=== PATIENT | female | born 1995 | race American Indian/Alaskan Native ===

== ENCOUNTER 2016-11-13 23:30 | Emergency (ER) | payer MEDICAID, OTHER ==
[2016-11-13 23:55] VITALS: BP 111/72; PULSE 97; RESP 20; TEMP 97.6; O2SAT 100
[2016-11-14] MEDS ORDERED: Albuterol-Ipratrop 3 mg / 0.5 (3 ml) UD ONE (00:03)
--- NOTE | 2016-11-14 00:06 | C.PDOC ---
History Of Present Illness 21 y/o female presents to ED with c/o cough, chest congestion, and shortness of breath for 2 days. Patient reports mild pain to the mid-chest on cough. Patient denies fever, chills, recent travel, sick contacts, or other associated symptoms. Time Seen by Provider: 11/13/16 23:57 Chief Complaint (Nursing): Shortness Of Breath History Per: Patient History/Exam Limitations: no limitations Onset/Duration Of Symptoms: Days Current Symptoms Are (Timing): Still Present Associated Symptoms: denies: Fever, Chest Pain, Bloody Cough, Dizziness, Anxiety Recent travel outside of the [place]: No Past Medical History Reviewed: Historical Data, Nursing Documentation, Vital Signs Vital Signs: Last Vital Signs Temp 97.6 F 11/13/16 23:48 Pulse 97 H 11/13/16 23:48 Resp 20 11/13/16 23:48 BP 111/72 11/13/16 23:48 Pulse Ox 100 11/14/16 00:50 Family History: States: Unknown Family Hx - Social History Hx Alcohol Use: Yes Hx Substance Use: No - Immunization History Hx Tetanus Toxoid Vaccination: No Hx Influenza Vaccination: No Hx Pneumococcal Vaccination: No Review Of Systems Constitutional: Negative for: Fever, Chills Cardiovascular: Positive for: Chest Pain (mid ) Respiratory: Positive for: Cough, Shortness of Breath Gastrointestinal: Negative for: Nausea, Vomiting, Abdominal Pain Skin: Negative for: Rash Neurological: Negative for: Headache, Dizziness Physical Exam - Physical Exam Appears: Non-toxic, No Acute Distress Skin: Normal Color, Warm, Dry, No Rash Head: Atraumatic, Normacephalic Eye(s): bilateral: Normal Inspection Oral Mucosa: Moist Throat: Normal, No Erythema, No Exudate Neck: Supple Chest: Symmetrical, No Tenderness Cardiovascular: Rhythm Regular Respiratory: Normal Breath Sounds, No Rales, Rhonchi, No Stridor, No Wheezing Back: Normal Inspection Extremity: Normal ROM, Capillary Refill (< 2 sec. ) Neurological/Psych: Oriented x3, Normal Speech, Normal Cognition Gait: Steady ED Course And Treatment O2 Sat by Pulse Oximetry: 100 (RA) Pulse Ox Interpretation: Normal Progress Note: Pt feels better after meds, CXR reviewed and normal. Pt is d/c with RX and will follow up with PMD Reassessment Condition: Improved Disposition Counseled Patient/Family Regarding: Diagnosis, Need For Followup - Disposition Disposition: HOME/ ROUTINE Disposition Time: 00:06 Condition: STABLE Additional Instructions: Please follow up with PMD Increase PO fluids Take all meds as prescribed Return to ER if worse Prescriptions: Ibuprofen [Motrin] 600 mg PO Q6H #30 tab Mometasone Furoate [Nasonex] 2 spray NS DAILY #1 bottle Benzonatate [Tessalon Perles] 100 mg PO TID #20 sgl Cetirizine HCl [Zyrtec] 10 mg PO DAILY #20 capsule Instructions: Upper Respiratory Infection (ED) Forms: Work Excuse - Clinical Impression Clinical Impression: Upper respiratory infection - PA / KILN TESTER / Resident Statement MD/DO has reviewed & agrees with the documentation as recorded. - Scribe Statement The provider has reviewed the documentation as recorded by the Sukumar Escobar Provider Scribe Attestation: All medical record entries made by the Spenceribsyeda were at my direction and personally dictated by me. I have reviewed the chart and agree that the record accurately reflects my personal performance of the history, physical exam, medical decision making, and the department course for this patient. I have also personally directed, reviewed, and agree with the discharge instructions and disposition.
[2016-11-14] MEDS ORDERED: Albuterol-Ipratrop 3 mg / 0.5 (3 ml) UD IH SCH (00:15)
--- NOTE | 2016-11-14 07:25 | RAD ---
HISTORY: cough, fever COMPARISON: None available. TECHNIQUE: Chest PA and lateral FINDINGS: LUNGS: No focal consolidation. Please note that chest x-ray has limited sensitivity for the detection of pulmonary masses. PLEURA: No significant pleural effusion identified. No definite pneumothorax . CARDIOVASCULAR: The cardiomediastinal silhouette appears within normal limits of size. OSSEOUS STRUCTURES: No acute osseous abnormality identified. VISUALIZED UPPER ABDOMEN: Unremarkable. OTHER FINDINGS: None. IMPRESSION: No focal consolidation, significant pleural effusion, or definite pneumothorax identified.
== END 2016-11-14 00:50 | disposition home or self-care (01) ==
LOC: C.ER 23:30
DX: J06.9 Acute upper respiratory infection, unspecified (principal)

== ENCOUNTER 2016-11-23 10:46 | Inpatient (IN) | payer MEDICAID ==
[2016-11-23] MEDS ORDERED: Sodium Chloride 0.9% 1,000 ML IV STA (11:26)
--- NOTE | 2016-11-23 11:37 | C.PDOC ---
History Of Present Illness 21 year old female presents to the ED with complaints of abdominal pain for two days and two episodes of vomiting. Patient denies any urinary symptoms, diarrhea , or fever. Time Seen by Provider: 11/23/16 11:00 Chief Complaint (Nursing): Abdominal Pain History Per: Patient History/Exam Limitations: no limitations Onset/Duration Of Symptoms: Days (two days) Current Symptoms Are (Timing): Still Present Severity: Mild Pain Scale Rating Of: 4 Location Of Pain/Discomfort: RUQ, Epigastric Radiation Of Pain To:: None Quality Of Discomfort: "Pain" Associated Symptoms: Vomiting. denies: Fever, Chills, Diarrhea, Urinary Symptoms Recent travel outside of the [place]: No Past Medical History Reviewed: Historical Data, Nursing Documentation, Vital Signs Vital Signs: Last Vital Signs Temp 97.6 F 11/23/16 17:17 Pulse 103 H 11/23/16 17:17 Resp 16 11/23/16 17:17 BP 101/65 11/23/16 17:17 Pulse Ox 100 11/23/16 18:02 Family History: States: Unknown Family Hx - Social History Hx Alcohol Use: No Hx Substance Use: No - Immunization History Hx Tetanus Toxoid Vaccination: No Hx Influenza Vaccination: No Hx Pneumococcal Vaccination: No Review Of Systems Constitutional: Negative for: Fever, Chills, Sweats Gastrointestinal: Positive for: Vomiting, Abdominal Pain. Negative for: Nausea , Diarrhea Genitourinary: Negative for: Dysuria, Hematuria Physical Exam - Physical Exam Appears: Non-toxic, No Acute Distress Skin: Warm, Dry Eye(s): bilateral: PERRL, EOMI Oral Mucosa: Moist Neck: Normal ROM, Supple Chest: Symmetrical, No Deformity Cardiovascular: Rhythm Regular, No Murmur Respiratory: No Accessory Muscle Use, No Rales, No Rhonchi, No Stridor, No Wheezing Gastrointestinal/Abdominal: Soft, Tenderness (upper abdomen in RUQ epigastric region ), No Distention, Guarding, No Rebound, Other (positive Moeller's point ) Extremity: Normal ROM, No Tenderness Neurological/Psych: Oriented x3 ED Course And Treatment - Laboratory Results Result Diagrams: 11/23/16 12:26 11/23/16 12:26 O2 Sat by Pulse Oximetry: 100 (room air ) - CT Scan/US CT abdomen/pelvis Other Rad Studies (CT/US): Read By Radiologist, Radiology Report Reviewed CT/US Interpretation: Accession No. : [id number]. Patient Name / ID : VISHNU BARKER / [id number]. Exam Date : 11/23/2016 14:31:26 ( Approved ). Study Comment : Sex / Age : F / 21Y. Creator : Amna Rust MD. Dictator : Amna Rust MD. Nnp : Global Human Resources Director : Amna Rust MD. Approver2 : Report Date : 11/23/2016 14:51:09. My Comment : . PROCEDURE: CT Abdomen and Pelvis with oral and IV contrast. HISTORY: ABD PAIN, ELEVATED WBCs. COMPARISON: None available. TECHNIQUE: Contiguous axial images of the abdomen and pelvis. Oral and IV contrast was administered. Coronal and Sagittal reformats generated and reviewed. Contrast dose: 150 mL Visipaque. Radiation dose: Total exam DLP = 927.59 mGy-cm. This CT exam was performed using one or more of the following dose reduction techniques: Automated exposure control, adjustment of the mA and/or kV according to patient size, and/or use of iterative reconstruction technique. FINDINGS: LOWER THORAX : No visible consolidation, pleural effusion, or pneumothorax. LIVER: Hepatomegaly. Hypoattenuation of the liver compatible with hepatic steatosis. GALLBLADDER AND BILE DUCTS: Unremarkable. PANCREAS: Unremarkable. SPLEEN: 12 mm splenule adjacent to the pancreatic tail. Otherwise unremarkable. ADRENALS: Unremarkable. KIDNEYS AND URETERS: The kidneys enhance symmetrically. No hydronephrosis or obstructing renal calculus. BLADDER: The urinary bladder appears unremarkable. REPRODUCTIVE: Uterus is present. Probable small right ovarian cysts. Prominent pelvic vessels likely related to pelvic congestion syndrome. APPENDIX: The appendix appears within normal limits of caliber. No secondary signs of acute appendicitis. BOWEL: The stomach is nondistended. The bowel loops appear within normal limits of caliber without evidence of intestinal obstruction. Fluid noted within small bowel loops without evidence of bowel distension; correlate clinically for possibility of enteritis. PERITONEUM: Small pelvic free fluid, likely physiologic. No definite free air. LYMPH NODES: Scattered nonspecific sub cm retroperitoneal lymph nodes. VASCULATURE: No aortic aneurysm. BONES: No acute osseous abnormality is detected. OTHER FINDINGS: Tiny fat containing umbilical hernia. IMPRESSION: Fluid noted within small bowel loops without evidence of bowel distension; correlate clinically for possibility of enteritis. Hepatomegaly. Mild hepatic steatosis. Probable small right ovarian cysts. Additional incidental findings as above. RUQ US Other Rad Studies (CT/US): Read By Radiologist, Radiology Report Reviewed CT/US Interpretation: Accession No. : [id number]. Patient Name / ID : VISHNU BRAKER / [id number]. Exam Date : 11/23/2016 11:41:00 ( Approved ). Study Comment : Sex / Age : F / 21Y. Creator : Amna Rust MD. Dictator : Amna Rust MD. Nnp : Global Human Resources Director : Amna Rust MD. Approver2 : Report Date : 11/23/2016 12:23:09. My Comment : . HISTORY: epigastric/RUQ pain. COMPARISON: None available. TECHNIQUE: Sonographic evaluation of the right upper quadrant of the abdomen. FINDINGS: LIVER: Measures 19.5 cm in length. Echogenic liver may be seen in setting of hepatic parenchymal disease or fatty infiltration. No focal hepatic mass identified. The main portal vein appears patent with normal directional flow. No intrahepatic bile duct dilatation. GALLBLADDER: 4 mm echogenic gallbladder focus without posterior acoustic shadowing, favored to reflect a polyp rather than a gallstone. No evidence of gallbladder sludge. No evidence of gallbladder wall thickening or pericholecystic edema. Positive sonographic Moeller's sign as assessed by the nurse advocate. COMMON BILE DUCT: Measures 2 mm. No stones. No dilatation. PANCREAS: Not well-visualized. RIGHT KIDNEY: Measures 11.2 x 4.4 x 4.0 cm. No obstructing calculus or hydronephrosis identified. AORTA: Limited visualization appears grossly unremarkable. IVC: Limited visualization appears grossly unremarkable. OTHER FINDINGS: None . IMPRESSION: Hepatomegaly. Echogenic liver may be seen in setting of hepatic parenchymal disease or fatty infiltration. 4 mm echogenic gallbladder focus without posterior acoustic shadowing, favored to reflect a polyp rather than a gallstone. No evidence of gallbladder sludge. No evidence of gallbladder wall thickening or pericholecystic edema. Positive sonographic Moeller's sign as assessed by the nurse advocate. Correlate clinically. - Physician Consult Information Physician Contacted: Piero Leija Jr. Outcome Of Conversation: accepted to [place] for observation Medical Decision Making Medical Decision Making: Will perform UCG, urinalysis, and ultra sound. Disposition - Disposition Disposition: HOSPITALIZED Disposition Time: 15:40 Condition: FAIR - Clinical Impression Clinical Impression: Abdominal pain, Nausea, Vomiting - Scribe Statement The provider has reviewed the documentation as recorded by the Scribsyeda Holm All medical record entries made by the Spenceribe were at my direction and personally dictated by me. I have reviewed the chart and agree that the record accurately reflects my personal performance of the history, physical exam, medical decision making, and the department course for this patient. I have also personally directed, reviewed, and agree with the discharge instructions and disposition. Decision To Admit - Pt Status Changed To: Hospital Disposition Of: Observation - . Bed Request Type: Regular Admitting Physician: Piero Leija Jr. Patient Diagnosis: Abdominal pain, Vomiting
[2016-11-23] MEDS ORDERED: Morphine 4 MG/ML VIAL ONE (11:42)
[2016-11-23] MEDS ORDERED: Sodium Chloride 0.9% 1,000 ML ONE (11:42)
[2016-11-23 12:03] LABS: RBC URINE < 1 /hpf (0-3); URINE BACTERIA RARE (<OCC); URINE BILIRUBIN NEGATIVE (NEGATIVE); URINE BLOOD NEGATIVE (NEGATIVE); URINE COLOR Yellow (YELLOW); URINE GLUCOSE (UA) NORMAL (Normal); URINE KETONE NEGATIVE (NEGATIVE); URINE LEUKOCYTE ESTERASE NEG Leu/uL (Negative); URINE PROTEIN NEGATIVE (NEGATIVE); URINE UROBILINOGEN NORMAL mg/dL (0.2-1.0); WBC URINE 1 /hpf (0-5)
--- NOTE | 2016-11-23 12:25 | US ---
HISTORY: epigastric/RUQ pain COMPARISON: None available. TECHNIQUE: Sonographic evaluation of the right upper quadrant of the abdomen. FINDINGS: LIVER: Measures 19.5 cm in length. Echogenic liver may be seen in setting of hepatic parenchymal disease or fatty infiltration. No focal hepatic mass identified. The main portal vein appears patent with normal directional flow. No intrahepatic bile duct dilatation. GALLBLADDER: 4 mm echogenic gallbladder focus without posterior acoustic shadowing, favored to reflect a polyp rather than a gallstone. No evidence of gallbladder sludge. No evidence of gallbladder wall thickening or pericholecystic edema. Positive sonographic Moeller's sign as assessed by the recruitment specialist. COMMON BILE DUCT: Measures 2 mm. No stones. No dilatation. PANCREAS: Not well-visualized. RIGHT KIDNEY: Measures 11.2 x 4.4 x 4.0 cm. No obstructing calculus or hydronephrosis identified AORTA: Limited visualization appears grossly unremarkable. IVC: Limited visualization appears grossly unremarkable. OTHER FINDINGS: None . IMPRESSION: Hepatomegaly. Echogenic liver may be seen in setting of hepatic parenchymal disease or fatty infiltration. 4 mm echogenic gallbladder focus without posterior acoustic shadowing, favored to reflect a polyp rather than a gallstone. No evidence of gallbladder sludge. No evidence of gallbladder wall thickening or pericholecystic edema. Positive sonographic Moeller's sign as assessed by the recruitment specialist. Correlate clinically.
[2016-11-23 12:30] LABS: BASO # 0.2 K/uL (0.0-0.2); BASO % 0.6 % (0.0-2.0); EOS # 0.2 K/uL (0.0-0.7); EOS % 0.8 % (0.0-4.0); HEMATOCRIT 32.5 % (34.0-47.0); LYMPH # 1.2 K/uL (1.0-4.3); LYMPH % 4.8 % (20.0-40.0); MEAN CELL VOLUME 78.2 fL (81.0-99.0); MEAN CORPUSCULAR HGB CONC 30.6 g/dL (33.0-37.0); MEAN PLATELET VOLUME 8.7 fL (7.2-11.7); MONO # 1.1 K/uL (0.0-0.8); MONO % 4.1 % (0.0-10.0); PLATELET COUNT 326 K/uL (130-400); RED CELL DISTRIBUTION WIDTH 16.5 % (11.5-14.5); WHITE BLOOD COUNT 25.9 K/uL (4.8-10.8)
[2016-11-23] MEDS ORDERED: Iohexol 240 (50 ml) PO STA (12:37)
[2016-11-23 12:43] LABS: CHLORIDE 106 mmol/L (98-107)
[2016-11-23 12:45] LABS: POTASSIUM 4.8 mmol/L (3.6-5.2); SODIUM 141 mmol/L (132-148)
[2016-11-23] MEDS ORDERED: Iohexol 240 (50 ml) ONE (12:45)
[2016-11-23 12:46] LABS: AST/SGOT 35 U/L (14-36); BILIRUBIN,TOTAL 0.7 mg/dL (0.2-1.3); CARBON DIOXIDE 23 mmol/L (22-30); GFR AFRICAN-AMERICAN > 60
[2016-11-23 12:47] LABS: ALB/GLOB RATIO 1.2 (1.0-2.1); ALKALINE PHOSPHATASE 48 U/L (38-126); ALT/SGPT 20 U/L (9-52); BLOOD UREA NITROGEN 13 mg/dL (7-17); CALCIUM 8.8 mg/dl (8.6-10.4); GLUCOSE,RANDOM 78 mg/dL (65-105); TOTAL PROTEIN 7.6 g/dL (6.3-8.3)
[2016-11-23 13:06] LABS: EOSINOPHIL 1 % (0-4); NEUTROPHIL 88 % (50-75); TOTAL CELLS COUNTED 100
[2016-11-23] MEDS ORDERED: Iodixanol 320 mg/ml 150 ml Bottle IV ONE (14:21)
--- NOTE | 2016-11-23 14:52 | CT ---
PROCEDURE: CT Abdomen and Pelvis with oral and IV contrast. HISTORY: ABD PAIN, ELEVATED WBCs COMPARISON: None available TECHNIQUE: Contiguous axial images of the abdomen and pelvis. Oral and IV contrast was administered. Coronal and Sagittal reformats generated and reviewed. Contrast dose: 150 mL Visipaque Radiation dose: Total exam DLP = 927.59 mGy-cm. This CT exam was performed using one or more of the following dose reduction techniques: Automated exposure control, adjustment of the mA and/or kV according to patient size, and/or use of iterative reconstruction technique. FINDINGS: LOWER THORAX: No visible consolidation, pleural effusion, or pneumothorax. LIVER: Hepatomegaly. Hypoattenuation of the liver compatible with hepatic steatosis. GALLBLADDER AND BILE DUCTS: Unremarkable. PANCREAS: Unremarkable. SPLEEN: 12 mm splenule adjacent to the pancreatic tail. Otherwise unremarkable. ADRENALS: Unremarkable. KIDNEYS AND URETERS: The kidneys enhance symmetrically. No hydronephrosis or obstructing renal calculus. BLADDER: The urinary bladder appears unremarkable. REPRODUCTIVE: Uterus is present. Probable small right ovarian cysts. Prominent pelvic vessels likely related to pelvic congestion syndrome. APPENDIX: The appendix appears within normal limits of caliber. No secondary signs of acute appendicitis. BOWEL: The stomach is nondistended. The bowel loops appear within normal limits of caliber without evidence of intestinal obstruction. Fluid noted within small bowel loops without evidence of bowel distension; correlate clinically for possibility of enteritis. PERITONEUM: Small pelvic free fluid, likely physiologic. No definite free air. LYMPH NODES: Scattered nonspecific sub cm retroperitoneal lymph nodes. VASCULATURE: No aortic aneurysm. BONES: No acute osseous abnormality is detected. OTHER FINDINGS: Tiny fat containing umbilical hernia. IMPRESSION: Fluid noted within small bowel loops without evidence of bowel distension; correlate clinically for possibility of enteritis. Hepatomegaly. Mild hepatic steatosis. Probable small right ovarian cysts. Additional incidental findings as above.
[2016-11-23] MEDS ORDERED: HYDROmorphone 1 mg/ml ISec IVP STA (15:34)
[2016-11-23] MEDS ORDERED: Piperacillin/Tazobact 3.375 gm 100 ML IV STA (15:41)
[2016-11-23] MEDS ORDERED: HYDROmorphone 1 mg/ml ISec ONE (15:45)
[2016-11-23] MEDS ORDERED: Piperacillin/Tazobact 3.375 gm 100 ML IVPB ONE (15:46)
--- NOTE | 2016-11-23 17:00 | CP.PCM.HP ---
History of Present Illness - History of Present Illness History of Present Illness: CCL " abdominal pain" 21 year old female with no PMHx presents to the ED after she experienced severe abdominal pain at work this AM. Patient reports she has had ongoing abdominal pain for the past month. Pain is intermittent, across her upper abdomen with some radiation to her back. Pain is not related to food intake and is exacerbated at night when she lays on her side. Pain is also worst with deep inspiration. She was in the ED when she had the very first episode of pain. She was told it was "just gas" and was sent home. She admits to a fatty diet. Last night she had fried fish, fried shrimp and hebrew fries. Today she had a [employer] burger for breakfast. Admits to 2 episodes of nausea and vomiting today. Reports subjective fevers and chills since yesterday. Denies weight loss. Admits to decreased appetite and feeling thirsty. Denies constipation, but admits to 1 loose stool yesterday. She also reports chest wall discomfort and pain for the past 2 days. Admits pain is worst when she presses on her chest. Denies reflux or metallic taste. PMHx: none Meds: none NKDA Social Hx: Smokes 4 cigs per day for the past year. Denies drug use. Admits to social alcohol intake (less than weekly). Family Hx: mother with DM, Asthma, "heart problems". Unknown father family Hx. Surgery Hx: 1 C section at 19 y/o. PMD: [facility] in Present on Admission - Present on Admission Any Indicators Present on Admission: No Review of Systems - Constitutional Constitutional: Chills, Fatigue, Fever, Malaise - EENT Eyes: absent: Blurred Vision, Change in Vision Ears: absent: Disequilibrium, Dizziness - Cardiovascular Cardiovascular: Chest Pain. absent: Chest Pain at Rest, Claudication, Dyspnea, Palpitations - Respiratory Respiratory: absent: Cough, Dyspnea, Hemoptysis, Wheezing - Gastrointestinal Gastrointestinal: Abdominal Pain, Bloating, Nausea, Vomiting. absent: Constipation, Diarrhea - Genitourinary Genitourinary: absent: Difficulty Urinating, Dysuria - Musculoskeletal Musculoskeletal: Back Pain, Myalgias. absent: Numbness, Tingling - Endocrine Endocrine: absent: Fatigue, Palpitations - Hematologic/Lymphatic Hematologic: Easy Bleeding, Easy Bruising Past Patient History - Infectious Disease Hx of Infectious Diseases: None - Past Social History Smoking Status: Former Smoker - PSYCHIATRIC Hx Substance Use: No - SURGICAL HISTORY Hx Section: Yes - ANESTHESIA Hx Anesthesia: Yes Hx Anesthesia Reactions: No Meds Allergies/Adverse Reactions: Allergies Allergy/AdvReac Type Severity Reaction Status Date / Time No Known Allergies Allergy Verified 11/23/16 10:55 Physical Exam - Constitutional Appears: No Acute Distress - Head Exam Head Exam: NORMAL INSPECTION, NORMOCEPHALIC - Eye Exam Eye Exam: EOMI, Normal appearance - ENT Exam ENT Exam: Mucous Membranes Moist - Neck Exam Neck exam: Positive for: Full Rom, Normal Inspection - Respiratory Exam Respiratory Exam: Clear to Auscultation Bilateral, NORMAL BREATHING PATTERN - Cardiovascular Exam Cardiovascular Exam: REGULAR RHYTHM, +S1, +S2 - GI/Abdominal Exam GI & Abdominal Exam: Diminished Bowel Sounds, Soft, Tenderness (epigatric and RUQ tenderness). absent: Distended, Organomegaly, Rebound - Extremities Exam Extremities exam: Positive for: full ROM, normal inspection. Negative for: pedal edema - Back Exam Back exam: NORMAL INSPECTION. absent: CVA tenderness (L), CVA tenderness (R) - Neurological Exam Neurological exam: Alert, CN II-XII Intact, Oriented x3 - Psychiatric Exam Psychiatric exam: Normal Affect, Normal Mood - Skin Skin Exam: Normal Color, Warm Results - Vital Signs Recent Vital Signs: Last Vital Signs Temp 99.1 F 11/23/16 15:36 Pulse 110 H 11/23/16 15:36 Resp 20 11/23/16 15:36 BP 109/63 11/23/16 15:36 Pulse Ox 100 11/23/16 15:37 - Labs Result Diagrams: 11/23/16 12:26 11/23/16 12:26 Assessment & Plan (1) Abdominal pain Assessment and Plan: Admit to Regular floor Patient with leukocytosis and abdominal pain. Enteritis, hepatomegaly, small fat containing hernia as per CT. Abdominal US suggestive of poylp vs gall stone. Surgery consult placed as per Dr. Leija- help appreciated. NPO IVF at 200 cc/hr Zosyn 3.375 mf IVPB Q8H Flagyl 250 mg IVPB Q8H Zofran IVP Q4H PRN Dilaudid 1mg IVP Q6H PRN Imaging: Abd US: Hepatomegaly. Echogenic liver may be seen in setting of hepatic parenchymal disease or fatty infiltration. 4 mm echogenic gallbladder focus without posterior acoustic shadowing, favored to reflect a polyp rather than a gallstone. No evidence of gallbladder sludge. No evidence of gallbladder wall thickening or pericholecystic edema. Positive sonographic Moeller's sign as assessed by the shutdown coordinator. Correlate clinically. Abd/Pelv CT: Fluid noted within small bowel loops without evidence of bowel distension; correlate clinically for possibility of enteritis. Hepatomegaly. Mild hepatic steatosis. Probable small right ovarian cysts. Status: Acute (2) Leukocytosis Assessment and Plan: WBC 25.9 on admission with bandemia. f/u CXR f/u blood Cx. Status: Acute (3) Vomiting Assessment and Plan: NPO IVF at 200 cc/hr Zofran IVP Q4H PRN Status: Acute (4) Hepatomegaly Assessment and Plan: As per CT and US. LFTs WNL. Patient is not heavy alcohol user. f/u FLP f/u Hepatitis panel. Status: Acute (5) Chest wall pain Assessment and Plan: Pain is reproducible to palpation. F/U EKG F/U CXR Dilaudid 1 mg IVP Q6H for severe pain. Status: Acute (6) Prophylactic measure Assessment and Plan: Protonix 40 mg IVP daily SCDs Status: Acute
[2016-11-23 18:58] VITALS: RESP 20
[2016-11-23] MEDS: Sodium Chloride 0.9% 1,000 ML IV SCH ×2 (19:20→22:13)
[2016-11-23] MEDS ORDERED: Pneumococcal 23-Valent Vaccine IM ONE (19:52)
[2016-11-23] MEDS: Piperacillin/Tazobact 3.375 GM in Sodium Chloride 100 ML IVPB SCH (19:59)
--- NOTE | 2016-11-23 20:57 | CP.PCM.CON ---
<Denton Virk - Last Filed: 11/23/16 20:32> History of Present Illness - History of Present Illness History of Present Illness: General Surgery Consult Re: leukocytosis, abd pain HPI: 21F presented to ER with 10/10 abd pain that began at work this AM. She had this pain before this past month but not as painful. Pain is mainly in the epigastrum with b/l radiation to her back. Worse with cough, deep inspiration, and laying on her side. [place] [facility] [place] episode of [place]. She was told it was "just gas" and was sent home. Associated with 2 episodes of NBNB vomiting today. + fevers and chills since yesterday, decreased appetite. Last BM yesterday was soft. PMH: Denies PSH: SH: Smokes 4 cigs/day, no drug use. Occasional social EtOH All: NKDA Meds: Denies Review of Systems - Review of Systems All systems: reviewed and no additional remarkable complaints except (as Per HPI ) Past Patient History - Infectious Disease Hx of Infectious Diseases: None - Past Social History Smoking Status: Light Smoker < 10 Cigarettes Daily - MUSCULOSKELETAL/RHEUMATOLOGICAL Hx Falls: No - GASTROINTESTINAL Hx Vomiting: Yes - PSYCHIATRIC Hx Substance Use: No - SURGICAL HISTORY Hx Section: Yes - ANESTHESIA Hx Anesthesia: Yes Hx Anesthesia Reactions: No Meds Allergies/Adverse Reactions: Allergies Allergy/AdvReac Type Severity Reaction Status Date / Time No Known Allergies Allergy Verified 11/23/16 10:55 - Medications Medications: Current Medications Acetaminophen (Tylenol 325mg Tab) 650 mg PO Q6 PRN PRN Reason: Fever >100.4 F Last Admin: 11/23/16 19:20 Dose: 650 mg Hydromorphone HCl (Dilaudid) 1 mg IVP Q6H PRN PRN Reason: Pain, severe (8-10) Sodium Chloride (Sodium Chloride 0.9%) 1,000 mls @ 200 mls/hr IV .Q5H [facility] Last Admin: 11/23/16 19:20 Dose: 200 mls/hr Metronidazole 250 mg/ (Miscellaneous) 50 mls @ 100 mls/hr IVPB Q8 [facility] Piperacillin Sod/Tazobactam (Sod 3.375 gm/ Sodium Chloride) 100 mls @ 200 mls/ hr IVPB Q6H [facility] Last Admin: 04/29/17 19:59 Dose: 200 mls/hr Ondansetron HCl (Zofran Inj) 4 mg IVP Q6 PRN PRN Reason: Nausea/Vomiting Last Admin: 11/23/16 20:09 Dose: 4 mg Pantoprazole Sodium (Protonix Inj) 40 mg IVP DAILY [facility] Last Admin: 11/23/16 19:20 Dose: 40 mg Physical Exam - Constitutional Appears: Non-toxic, No Acute Distress - Head Exam Head Exam: ATRAUMATIC, NORMOCEPHALIC - Eye Exam Eye Exam: EOMI. absent: Scleral icterus - ENT Exam ENT Exam: Mucous Membranes Dry Additional comments: trachea midline - Respiratory Exam Respiratory Exam: NORMAL BREATHING PATTERN. absent: Respiratory Distress - GI/Abdominal Exam GI & Abdominal Exam: Guarding (diffusely), Soft, Tenderness (most in epigastrum , other palpated areas cause increased pain in epigastrum). absent: Distended, Firm, Rigid - Rectal Exam Rectal Exam: Deferred - Extremities Exam Extremities exam: Positive for: normal capillary refill, pedal pulses present. Negative for: calf tenderness - Back Exam Back exam: paraspinal tenderness (b/l lumbar area) - Neurological Exam Neurological exam: Alert, Oriented x3 - Psychiatric Exam Psychiatric exam: Normal Affect, Normal Mood - Skin Skin Exam: Dry, Warm Results - Vital Signs Recent Vital Signs: Last Vital Signs Temp 100.9 F H 11/23/16 19:20 Pulse 112 H 11/23/16 18:57 Resp 20 11/23/16 18:57 BP 99/59 L 11/23/16 18:57 Pulse Ox 98 11/23/16 18:57 - Labs Result Diagrams: 11/23/16 12:26 11/23/16 12:26 - Imaging and Cardiology CT scan - abdomen Status: Image reviewed by me, Report reviewed by me US - abdomen Status: Image reviewed by me, Report reviewed by me Assessment & Plan - Assessment and Plan (Free Text) Assessment: 21F with abd pain likely 2/2 enteritis. Plan: Serial abd exams AM labs Analgesia Zofran F/U cultures D/W Dr. Francisco Virk PGY3 <Woo Singh - Last Filed: 11/27/16 21:27> Results - Vital Signs Recent Vital Signs: Last Vital Signs Temp 98.0 F 11/27/16 07:32 Pulse 75 11/27/16 07:32 Resp 20 11/27/16 07:32 BP 112/72 11/27/16 07:32 Pulse Ox 98 11/27/16 07:32 - Labs Result Diagrams: 11/27/16 07:01 11/27/16 07:01 Labs: Laboratory Results - last 24 hr 11/27/16 11/27/16 07:01 07:01 WBC 11.3 H RBC 3.60 L Hgb 8.9 L Hct 27.9 L MCV 77.6 L MCH 24.8 L MCHC 32.0 L RDW 16.2 H Plt Count 270 MPV 9.2 Neut % (Auto) 69.3 Lymph % (Auto) 21.6 [place] % (Auto) 6.4 Eos % (Auto) 2.5 Baso % (Auto) 0.2 Neut # 7.9 H Lymph # 2.5 [place] # 0.7 Eos # 0.3 Baso # 0.0 Sodium 138 Potassium 4.0 Chloride 105 Carbon Dioxide 23 Anion Gap 14 BUN 8 Creatinine 0.6 L Est GFR ( Amer) > 60 Est GFR (Non-Af Amer) > 60 Random Glucose 75 Calcium 8.4 L Total Bilirubin 0.3 AST 36 D ALT 76 H Alkaline Phosphatase 53 Total Protein 6.2 L Albumin 3.5 Globulin 2.8 Albumin/Globulin Ratio 1.3 Attending/Attestation - Attestation I have personally seen and examined this patient.: Yes I have fully participated in the care of the patient.: Yes I have reviewed all pertinent clinical information: Yes Notes (Text): 11/27/16 21:26 Pt was seen and examined at bedside on 11/23/16 Agree with above note and assessment Pt with Enteritis with Abdominal Pain C/w IV antibiotics NPO,IVF Plan d.w pt and primary team in detail Risk and benefit explained in detail.
[2016-11-23] MEDS: metroNIDAZOLE IV 500 mg/100 ml 250 MG in Premixed IV 1 EA IVPB SCH (22:11)
[2016-11-24] MEDS: HYDROmorphone 1 mg/ml ISec IVP PRN ×3 (00:45→16:07)
[2016-11-24] MEDS: Piperacillin/Tazobact 3.375 GM in Sodium Chloride 100 ML IVPB SCH ×4 (03:00→21:39)
--- NOTE | 2016-11-24 03:34 | CP.PCM.PN ---
<Juan Gamboa - Last Filed: 11/24/16 03:32> Subjective - Date & Time of Evaluation Date of Evaluation: 11/24/16 Time of Evaluation: 03:32 - Subjective Subjective: PGY-1 Medicine Progress Note for Dr. Leija Patient seen and examined at bedside. No acute event overnight. Patient resting comfortably in bed. She is still experiencing abd pain but is more controlled with medication. Patient also still has nausea. Patient is receiving IV fluids and IV antibiotics. Admits fever/chills and cp. Denies SOB, palpitations, vomiting/diarrhea, constipation, incontinence, fatigue, numbness/tingling. Objective - Vital Signs/Intake and Output Vital Signs (last 24 hours): Temp Pulse Resp BP Pulse Ox 98.3 F 97 H 20 97/59 L 99 11/24/16 00:00 11/24/16 00:00 11/24/16 00:00 11/24/16 00:00 11/24/16 00:00 Intake and Output: 11/23/16 11/24/16 18:59 06:59 Intake Total 800 Balance 800 - Medications Medications: Current Medications Acetaminophen (Tylenol 325mg Tab) 650 mg PO Q6 PRN PRN Reason: Fever >100.4 F Last Admin: 11/23/16 19:20 Dose: 650 mg Hydromorphone HCl (Dilaudid) 1 mg IVP Q6H PRN PRN Reason: Pain, severe (8-10) Last Admin: 11/24/16 00:45 Dose: 1 mg Sodium Chloride (Sodium Chloride 0.9%) 1,000 mls @ 200 mls/hr IV .Q5H [facility] Last Admin: 11/23/16 22:13 Dose: 200 mls/hr Metronidazole 250 mg/ (Miscellaneous) 50 mls @ 100 mls/hr IVPB Q8 [facility] Last Admin: 11/23/16 22:11 Dose: 100 mls/hr Piperacillin Sod/Tazobactam (Sod 3.375 gm/ Sodium Chloride) 100 mls @ 200 mls/ hr IVPB Q6H [facility] Last Admin: 11/23/16 19:59 Dose: 200 mls/hr Ondansetron HCl (Zofran Inj) 4 mg IVP Q6 PRN PRN Reason: Nausea/Vomiting Last Admin: 11/23/16 20:09 Dose: 4 mg Pantoprazole Sodium (Protonix Inj) 40 mg IVP DAILY [facility] Last Admin: 11/23/16 19:20 Dose: 40 mg - Constitutional Appears: No Acute Distress - Head Exam Head Exam: ATRAUMATIC, NORMAL INSPECTION, NORMOCEPHALIC - Eye Exam Eye Exam: EOMI, Normal appearance Pupil Exam: PERRL - ENT Exam ENT Exam: Mucous Membranes Moist - Neck Exam Neck Exam: Normal Inspection - Respiratory Exam Respiratory Exam: Clear to Ausculation Bilateral, NORMAL BREATHING PATTERN - Cardiovascular Exam Cardiovascular Exam: REGULAR RHYTHM, +S1, +S2 - GI/Abdominal Exam GI & Abdominal Exam: Soft, Tenderness (epigastric/RUQ), Diminished Bowel Sounds - Rectal Exam Rectal Exam: Deferred - Extremities Exam Extremities Exam: Full ROM, Normal Capillary Refill. absent: Calf Tenderness - Back Exam Back Exam: NORMAL INSPECTION. absent: CVA tenderness (L), CVA tenderness (R) - Neurological Exam Neurological Exam: Alert, Awake, CN II-XII Intact, Oriented x3 - Psychiatric Exam Psychiatric exam: Normal Affect, Normal Mood - Skin Skin Exam: Dry, Intact, Normal Color, Warm Assessment and Plan - Assessment and Plan (Free Text) Plan: (1) Abdominal pain Assessment and Plan: leukocytosis and abd pain Enteritis, hepatomegaly, small fat containing hernia as per CT scan Abdominal US suggestive of poylp vs gall stone. Surgery consult, Dr. Singh, help appreciated EKG: sinus tacycardia at 110 bpm NPO NS 200 cc/hr Zosyn 3.375 mf IVPB Q8H Flagyl 250 mg IVPB Q8H Zofran IVP Q4H PRN Dilaudid 1mg IVP Q6H PRN Abd US: Hepatomegaly. Echogenic liver may be seen in setting of hepatic parenchymal disease or fatty infiltration. 4 mm echogenic gallbladder focus without posterior acoustic shadowing, favored to reflect a polyp rather than a gallstone. No evidence of gallbladder sludge. No evidence of gallbladder wall thickening or pericholecystic edema. Positive sonographic Moeller's sign as assessed by the switch box installer. Correlate clinically (see full report) Abd/Pelv CT: Fluid noted within small bowel loops without evidence of bowel distension; correlate clinically for possibility of enteritis. Hepatomegaly. Mild hepatic steatosis. Probable small right ovarian cysts (see full report) (2) Leukocytosis Assessment and Plan: elevated WBC with bandemia IV antibiotics f/u CXR report f/u blood Cx EKG: sinus tacycardia at 110 bpm (3) Vomiting Assessment and Plan: NPO NS 200 cc/hr Zofran IVP Q4H PRN (4) Hepatomegaly Assessment and Plan: As per CT and US. LFTs WNL. Patient is not heavy alcohol user. f/u FLP f/u Hepatitis panel. (5) Chest wall pain Assessment and Plan: Pain is reproducible to palpation EKG: sinus tacycardia at 110 bpm f/u CXR report Dilaudid 1 mg IVP Q6H PRN severe pain (6) Prophylactic measure Assessment and Plan: Protonix 40 mg IVP daily [facility] <Piero Leija Jr. - Last Filed: 11/24/16 14:01> Objective - Vital Signs/Intake and Output Vital Signs (last 24 hours): Temp Pulse Resp BP Pulse Ox 98.3 F 97 H 20 100/65 98 11/24/16 08:00 11/24/16 08:00 11/24/16 08:00 11/24/16 08:00 11/24/16 08:00 Intake and Output: 11/24/16 11/24/16 06:59 18:59 Intake Total 2400 Balance 2400 - Medications Medications: Current Medications Acetaminophen (Tylenol 325mg Tab) 650 mg PO Q6 PRN PRN Reason: Fever >100.4 F Last Admin: 11/23/16 19:20 Dose: 650 mg Hydromorphone HCl (Dilaudid) 1 mg IVP Q6H PRN PRN Reason: Pain, severe (8-10) Last Admin: 11/24/16 09:43 Dose: 1 mg Sodium Chloride (Sodium Chloride 0.9%) 1,000 mls @ 200 mls/hr IV .Q5H [facility] Last Admin: 11/24/16 09:20 Dose: Not Given Metronidazole 250 mg/ (Miscellaneous) 50 mls @ 100 mls/hr IVPB Q8 [facility] Last Admin: 11/24/16 05:27 Dose: 100 mls/hr Piperacillin Sod/Tazobactam (Sod 3.375 gm/ Sodium Chloride) 100 mls @ 200 mls/ hr IVPB Q6H [facility] Last Admin: 11/24/16 09:19 Dose: 200 mls/hr Ondansetron HCl (Zofran Inj) 4 mg IVP Q6 PRN PRN Reason: Nausea/Vomiting Last Admin: 11/23/16 20:09 Dose: 4 mg Pantoprazole Sodium (Protonix Inj) 40 mg IVP DAILY [facility] Last Admin: 11/24/16 09:19 Dose: 40 mg - Labs Labs: 11/24/16 06:52 11/24/16 06:52 PT 13.6 SECONDS (9.7-12.2) H 11/24/16 06:52 INR 1.2 11/24/16 06:52 APTT 29 SECONDS (21-34) 11/24/16 06:52 Attending/Attestation - Attestation I have personally seen and examined this patient.: Yes I have fully participated in the care of the patient.: Yes I have reviewed all pertinent clinical information, including history, physical exam and plan: Yes Notes (Text): 11/24/16 14:01 Agree with findings and plan
[2016-11-24] MEDS: metroNIDAZOLE IV 500 mg/100 ml 250 MG in Premixed IV 1 EA IVPB SCH ×3 (05:27→21:43)
[2016-11-24 07:13] LABS: INR 1.2
[2016-11-24 07:14] LABS: BASO % 0.1 % (0.0-2.0); EOS # 0.1 K/uL (0.0-0.7); EOS % 0.7 % (0.0-4.0); HEMATOCRIT 27.1 % (34.0-47.0); LYMPH # 1.3 K/uL (1.0-4.3); LYMPH % 9.4 % (20.0-40.0); MEAN CELL VOLUME 77.1 fL (81.0-99.0); MEAN CORPUSCULAR HEMOGLOBIN 24.3 pg (27.0-31.0); MEAN CORPUSCULAR HGB CONC 31.5 g/dL (33.0-37.0); MONO # 0.6 K/uL (0.0-0.8); MONO % 4.6 % (0.0-10.0); PLATELET COUNT 240 K/uL (130-400); RED CELL DISTRIBUTION WIDTH 16.3 % (11.5-14.5); WHITE BLOOD COUNT 13.5 K/uL (4.8-10.8)
[2016-11-24 07:28] LABS: CHLORIDE 106 mmol/L (98-107); POTASSIUM 3.2 mmol/L (3.6-5.2); SODIUM 134 mmol/L (132-148)
[2016-11-24 07:30] LABS: ALB/GLOB RATIO 1.3 (1.0-2.1); AST/SGOT 11 U/L (14-36); BILIRUBIN,TOTAL 0.4 mg/dL (0.2-1.3); CARBON DIOXIDE 19 mmol/L (22-30); CHOLESTEROL 95 mg/dL (0-199); GFR AFRICAN-AMERICAN > 60; TOTAL PROTEIN 5.2 g/dL (6.3-8.3)
[2016-11-24 07:31] LABS: ALKALINE PHOSPHATASE 44 U/L (38-126); ALT/SGPT 24 U/L (9-52); BLOOD UREA NITROGEN 7 mg/dL (7-17); GLUCOSE,RANDOM 79 mg/dL (65-105)
[2016-11-24 07:51] LABS: CALCIUM 7.1 mg/dl (8.6-10.4)
[2016-11-24 08:32] LABS: NEUTROPHIL 81 % (50-75); TOTAL CELLS COUNTED 100
[2016-11-24 08:34] LABS: GIANT PLATELETS PRESENT; LARGE PLATELETS PRESENT
[2016-11-24] MEDS ORDERED: Potassium Chloride 20 mEq ER Tab PO ONE (09:00)
[2016-11-24] MEDS: Sodium Chloride 0.9% 1,000 ML IV SCH ×5 (09:20→21:45)
--- NOTE | 2016-11-24 10:11 | CP.PCM.PN ---
<AlonsoAllie - Last Filed: 11/24/16 10:09> Subjective - Date & Time of Evaluation Date of Evaluation: 11/24/16 Time of Evaluation: 10:09 - Subjective Subjective: General Surgery - Dr. Singh Pt [facility]. [facility]. Pt states her pain is slightly better today, still with mild- moderate diffuse pain. She is NPO. No N/V, F/C, Diarrhea, SOB/CP. Objective - Vital Signs/Intake and Output Vital Signs (last 24 hours): Temp Pulse Resp BP Pulse Ox 98.3 F 97 H 20 100/65 98 11/24/16 08:00 11/24/16 08:00 11/24/16 08:00 11/24/16 08:00 11/24/16 08:00 Intake and Output: 11/24/16 11/24/16 06:59 18:59 Intake Total 2400 Balance 2400 - Medications Medications: Current Medications Acetaminophen (Tylenol 325mg Tab) 650 mg PO Q6 PRN PRN Reason: Fever >100.4 F Last Admin: 11/23/16 19:20 Dose: 650 mg Hydromorphone HCl (Dilaudid) 1 mg IVP Q6H PRN PRN Reason: Pain, severe (8-10) Last Admin: 11/24/16 09:43 Dose: 1 mg Sodium Chloride (Sodium Chloride 0.9%) 1,000 mls @ 200 mls/hr IV .Q5H [facility] Last Admin: 11/24/16 09:20 Dose: Not Given Metronidazole 250 mg/ (Miscellaneous) 50 mls @ 100 mls/hr IVPB Q8 [facility] Last Admin: 11/24/16 05:27 Dose: 100 mls/hr Piperacillin Sod/Tazobactam (Sod 3.375 gm/ Sodium Chloride) 100 mls @ 200 mls/ hr IVPB Q6H [facility] Last Admin: 11/24/16 09:19 Dose: 200 mls/hr Ondansetron HCl (Zofran Inj) 4 mg IVP Q6 PRN PRN Reason: Nausea/Vomiting Last Admin: 11/23/16 20:09 Dose: 4 mg Pantoprazole Sodium (Protonix Inj) 40 mg IVP DAILY [facility] Last Admin: 11/24/16 09:19 Dose: 40 mg - Labs Labs: 11/24/16 06:52 11/24/16 06:52 PT 13.6 SECONDS (9.7-12.2) H 11/24/16 06:52 INR 1.2 11/24/16 06:52 APTT 29 SECONDS (21-34) 11/24/16 06:52 - Constitutional Appears: No Acute Distress - Head Exam Head Exam: ATRAUMATIC, NORMAL INSPECTION, NORMOCEPHALIC - Eye Exam Eye Exam: Normal appearance - Respiratory Exam Respiratory Exam: NORMAL BREATHING PATTERN. absent: Respiratory Distress - Cardiovascular Exam Cardiovascular Exam: REGULAR RHYTHM - GI/Abdominal Exam GI & Abdominal Exam: Soft, Tenderness (mild ttp diffusely). absent: Distended, Guarding, Rigid, Rebound - Neurological Exam Neurological Exam: Alert, Oriented x3 - Psychiatric Exam Psychiatric exam: Normal Affect, Normal Mood - Skin Skin Exam: Dry, Intact Assessment and Plan - Assessment and Plan (Free Text) Assessment: 21F with abd pain likely d/t enteritis Plan: -Continue IV Abx -Pain control -IVF and bowel rest -Poss Clear liquids later today D/W Dr. Francisco Gupta PGY2 <Woo Singh - Last Filed: 11/27/16 21:31> Objective - Vital Signs/Intake and Output Vital Signs (last 24 hours): Temp Pulse Resp BP Pulse Ox 98.0 F 75 20 112/72 98 11/27/16 07:32 11/27/16 07:32 11/27/16 07:32 11/27/16 07:32 11/27/16 07:32 - Labs Labs: 11/27/16 07:01 11/27/16 07:01 PT 13.6 SECONDS (9.7-12.2) H 11/24/16 06:52 INR 1.2 11/24/16 06:52 APTT 29 SECONDS (21-34) 11/24/16 06:52 Attending/Attestation - Attestation I have personally seen and examined this patient.: Yes I have fully participated in the care of the patient.: Yes I have reviewed all pertinent clinical information, including history, physical exam and plan: Yes Notes (Text): 11/27/16 21:31 Pt was seen and examined at bedside on 11/24/16 Agree with above note and assessment Pt with Enteritis Improving clinically Plan d.w pt and primary team in detail We will f.u
--- NOTE | 2016-11-24 11:30 | RAD ---
HISTORY: chest wall tenderness COMPARISON: Chest x-ray performed 11/14/16 TECHNIQUE: Chest PA and lateral FINDINGS: LUNGS: No focal consolidation. Please note that chest x-ray has limited sensitivity for the detection of pulmonary masses. PLEURA: No significant pleural effusion identified. No definite pneumothorax . CARDIOVASCULAR: The cardiomediastinal silhouette appears within normal limits of size. OSSEOUS STRUCTURES: No acute osseous abnormality identified. VISUALIZED UPPER ABDOMEN: Unremarkable. OTHER FINDINGS: None. IMPRESSION: No focal consolidation, significant pleural effusion, or definite pneumothorax identified.
[2016-11-24 11:34] LABS: MAGNESIUM 1.8 mg/dL (1.6-2.3)
[2016-11-25] MEDS: HYDROmorphone 1 mg/ml ISec IVP PRN ×4 (01:30→22:54)
[2016-11-25] MEDS: Piperacillin/Tazobact 3.375 GM in Sodium Chloride 100 ML IVPB SCH ×4 (02:20→21:45)
[2016-11-25] MEDS: Sodium Chloride 0.9% 1,000 ML IV SCH ×6 (02:21→17:45)
[2016-11-25] MEDS: metroNIDAZOLE IV 500 mg/100 ml 250 MG in Premixed IV 1 EA IVPB SCH ×3 (05:07→22:24)
[2016-11-25 07:27] LABS: BASO % 0.2 % (0.0-2.0); EOS # 0.2 K/uL (0.0-0.7); EOS % 1.9 % (0.0-4.0); HEMATOCRIT 26.6 % (34.0-47.0); LYMPH # 1.9 K/uL (1.0-4.3); LYMPH % 19.7 % (20.0-40.0); MEAN CELL VOLUME 78.4 fL (81.0-99.0); MEAN CORPUSCULAR HEMOGLOBIN 24.6 pg (27.0-31.0); MEAN CORPUSCULAR HGB CONC 31.4 g/dL (33.0-37.0); MONO # 0.7 K/uL (0.0-0.8); MONO % 7.3 % (0.0-10.0); RED CELL DISTRIBUTION WIDTH 16.4 % (11.5-14.5); WHITE BLOOD COUNT 9.7 K/uL (4.8-10.8)
[2016-11-25 07:37] LABS: CHLORIDE 108 mmol/L (98-107)
[2016-11-25 07:38] LABS: POTASSIUM 3.9 mmol/L (3.6-5.2); SODIUM 137 mmol/L (132-148)
[2016-11-25 07:40] LABS: ALB/GLOB RATIO 1.1 (1.0-2.1); AST/SGOT 50 U/L (14-36); BILIRUBIN,TOTAL 0.3 mg/dL (0.2-1.3); BLOOD UREA NITROGEN 5 mg/dL (7-17); CARBON DIOXIDE 21 mmol/L (22-30); GFR AFRICAN-AMERICAN > 60; TOTAL PROTEIN 5.7 g/dL (6.3-8.3)
[2016-11-25 07:41] LABS: ALKALINE PHOSPHATASE 60 U/L (38-126); ALT/SGPT 61 U/L (9-52); GLUCOSE,RANDOM 84 mg/dL (65-105)
--- NOTE | 2016-11-25 07:49 | CP.PCM.PN ---
Addendum entered and electronically signed by Monie Palma DO 11/25/16 08: 20: Further discussion with attending, symptoms most likely enteritis. Cont to [facility]. Should f/u as outpatient regarding surgery prn. Original Note: <Monie Palma - Last Filed: 11/25/16 07:46> Subjective - Date & Time of Evaluation Date of Evaluation: 11/25/16 Time of Evaluation: 07:46 - Subjective Subjective: Surgery: Dr. Singh Patient complains of increasing pain to the abdomen mainly located on the RUQ. Patient reports nausea, no vomiting. She says the pain on the right side is worse with inspiration. She denies f/c. She was able to tolerate come clears yesterday but denies eating or drinking this morning. Objective - Vital Signs/Intake and Output Vital Signs (last 24 hours): Temp Pulse Resp BP Pulse Ox 99.1 F 77 20 97/64 L 98 11/25/16 00:00 11/25/16 00:00 11/25/16 00:00 11/25/16 00:00 11/25/16 00:00 Intake and Output: 11/25/16 11/25/16 06:59 18:59 Intake Total 1700 Balance 1700 - Medications Medications: Current Medications Acetaminophen (Tylenol 325mg Tab) 650 mg PO Q6 PRN PRN Reason: Fever >100.4 F Last Admin: 11/24/16 14:35 Dose: 650 mg Hydromorphone HCl (Dilaudid) 1 mg IVP Q6H PRN PRN Reason: Pain, severe (8-10) Last Admin: 11/25/16 01:30 Dose: 1 mg Sodium Chloride (Sodium Chloride 0.9%) 1,000 mls @ 200 mls/hr IV .Q5H [facility] Last Admin: 11/25/16 05:11 Dose: Not Given Metronidazole 250 mg/ (Miscellaneous) 50 mls @ 100 mls/hr IVPB Q8 [facility] Last Admin: 11/25/16 05:07 Dose: 100 mls/hr Piperacillin Sod/Tazobactam (Sod 3.375 gm/ Sodium Chloride) 100 mls @ 200 mls/ hr IVPB Q6H [facility] Last Admin: 11/25/16 02:20 Dose: 200 mls/hr Ondansetron HCl (Zofran Inj) 4 mg IVP Q6 PRN PRN Reason: Nausea/Vomiting Last Admin: 11/24/16 16:55 Dose: 4 mg Pantoprazole Sodium (Protonix Inj) 40 mg IVP DAILY [facility] Last Admin: 11/24/16 09:19 Dose: 40 mg - Labs Labs: 11/24/16 06:52 11/25/16 07:20 PT 13.6 SECONDS (9.7-12.2) H 11/24/16 06:52 INR 1.2 11/24/16 06:52 APTT 29 SECONDS (21-34) 11/24/16 06:52 - Constitutional Appears: Non-toxic, No Acute Distress - Head Exam Head Exam: ATRAUMATIC, NORMOCEPHALIC - Eye Exam Eye Exam: EOMI, Normal appearance - ENT Exam ENT Exam: Mucous Membranes Moist - Respiratory Exam Respiratory Exam: NORMAL BREATHING PATTERN. absent: Respiratory Distress - Cardiovascular Exam Cardiovascular Exam: REGULAR RHYTHM. absent: Tachycardia - GI/Abdominal Exam GI & Abdominal Exam: Soft, Tenderness (diffusely tender but moderately TTP in the RUQ, + Moeller's elicited ) - Rectal Exam Rectal Exam: Deferred - Extremities Exam Extremities Exam: absent: Calf Tenderness - Neurological Exam Neurological Exam: Alert, Awake - Skin Skin Exam: Dry, Normal Color, Warm Assessment and Plan - Assessment and Plan (Free Text) Assessment: 21 y/o female w/ abdominal pain, r/o cholecystitis Plan: -NPO this am -cont abx -may need repeat/additional imaging to re-evaluate GB -cont IVF -further medical care per primary -will discuss w/ Dr. Singh AKWhite PGY1 <Woo Singh B - Last Filed: 11/27/16 21:36> Objective - Vital Signs/Intake and Output Vital Signs (last 24 hours): Temp Pulse Resp BP Pulse Ox 98.0 F 75 20 112/72 98 11/27/16 07:32 11/27/16 07:32 11/27/16 07:32 11/27/16 07:32 11/27/16 07:32 - Labs Labs: 11/27/16 07:01 11/27/16 07:01 PT 13.6 SECONDS (9.7-12.2) H 11/24/16 06:52 INR 1.2 11/24/16 06:52 APTT 29 SECONDS (21-34) 11/24/16 06:52 Attending/Attestation - Attestation I have personally seen and examined this patient.: Yes I have fully participated in the care of the patient.: Yes I have reviewed all pertinent clinical information, including history, physical exam and plan: Yes Notes (Text): 11/27/16 21:35 Pt was seen and examined at bedside on 11/25/16 Agree with above note and assessment Pt with Improving Enteritis Advance diet as tolerated GB polyp f/u as out pt Plan d.w pt in detail.
--- NOTE | 2016-11-25 10:41 | RAD ---
HISTORY: chest pain COMPARISON: 11/23/2016 FINDINGS: LUNGS: Mild venous congestion. PLEURA: No significant pleural effusion identified, no pneumothorax apparent. CARDIOVASCULAR: Normal. OSSEOUS STRUCTURES: No significant abnormalities. VISUALIZED UPPER ABDOMEN: Normal. OTHER FINDINGS: None. IMPRESSION: Mild venous congestion.
--- NOTE | 2016-11-25 14:37 | CP.PCM.PN ---
<Juan Gamboa - Last Filed: 11/25/16 14:30> Subjective - Date & Time of Evaluation Date of Evaluation: 11/25/16 Time of Evaluation: 09:15 - Subjective Subjective: PGY-1 Medicine Progress Note for Dr. Leija Patient seen and examined at bedside. No acute event overnight. This morning, patient was complaining of chest pain. It was not relieved with pepcid so DANNIELLE, EKG, and D-Dimer were ordered. Abdominal pain is still present. Pain mediation is helping. Patient is receiving IV fluids and IV antibiotics for suspected enteritis. Admits to cp, rib pain, chest wall tenderness, pain on inspiration. Denies SOB, palpitations, vomiting/diarrhea, constipation, incontinence, fatigue , numbness/tingling. Objective - Vital Signs/Intake and Output Vital Signs (last 24 hours): Temp Pulse Resp BP Pulse Ox 98.5 F 67 20 115/74 98 11/25/16 09:03 11/25/16 09:03 11/25/16 09:03 11/25/16 09:03 11/25/16 09:03 Intake and Output: 11/25/16 11/25/16 06:59 18:59 Intake Total 1700 Balance 1700 - Medications Medications: Current Medications Acetaminophen (Tylenol 325mg Tab) 650 mg PO Q6 PRN PRN Reason: Fever >100.4 F Last Admin: 11/24/16 14:35 Dose: 650 mg Hydromorphone HCl (Dilaudid) 1 mg IVP Q6H PRN PRN Reason: Pain, severe (8-10) Last Admin: 11/25/16 08:41 Dose: 1 mg Sodium Chloride (Sodium Chloride 0.9%) 1,000 mls @ 200 mls/hr IV .Q5H [facility] Last Admin: 11/25/16 11:49 Dose: 200 mls/hr Metronidazole 250 mg/ (Miscellaneous) 50 mls @ 100 mls/hr IVPB Q8 [facility] Last Admin: 11/25/16 05:07 Dose: 100 mls/hr Piperacillin Sod/Tazobactam (Sod 3.375 gm/ Sodium Chloride) 100 mls @ 200 mls/ hr IVPB Q6H [facility] Last Admin: 11/25/16 08:42 Dose: 200 mls/hr Ondansetron HCl (Zofran Inj) 4 mg IVP Q6 PRN PRN Reason: Nausea/Vomiting Last Admin: 11/24/16 16:55 Dose: 4 mg Pantoprazole Sodium (Protonix Inj) 40 mg IVP DAILY [facility] Last Admin: 11/25/16 11:50 Dose: 40 mg - Labs Labs: 11/25/16 07:20 11/25/16 07:20 PT 13.6 SECONDS (9.7-12.2) H 11/24/16 06:52 INR 1.2 11/24/16 06:52 APTT 29 SECONDS (21-34) 11/24/16 06:52 - Constitutional Appears: In Acute Distress (mild) - Head Exam Head Exam: ATRAUMATIC, NORMOCEPHALIC - Eye Exam Eye Exam: EOMI, Normal appearance Pupil Exam: PERRL - ENT Exam ENT Exam: Mucous Membranes Moist - Respiratory Exam Respiratory Exam: Chest Wall Tenderness, Clear to Ausculation Bilateral, NORMAL BREATHING PATTERN. absent: Accessory Muscle Use, Respiratory Distress - Cardiovascular Exam Cardiovascular Exam: REGULAR RHYTHM, +S1, +S2 - GI/Abdominal Exam GI & Abdominal Exam: Soft, Tenderness (epigatric), Normal Bowel Sounds. absent : Distended, Firm, Guarding, Rigid, Rebound - Extremities Exam Extremities Exam: Normal Capillary Refill. absent: Calf Tenderness, Pedal Edema , Tenderness - Back Exam Back Exam: absent: CVA tenderness (L), CVA tenderness (R) - Neurological Exam Neurological Exam: Alert, Awake, CN II-XII Intact, Oriented x3 - Psychiatric Exam Psychiatric exam: Normal Affect, Normal Mood - Skin Skin Exam: Dry, Intact, Normal Color, Warm Assessment and Plan - Assessment and Plan (Free Text) Plan: (1) Abdominal pain Assessment and Plan: leukocytosis Enteritis, hepatomegaly, small fat containing hernia as per CT scan Abdominal US suggestive of poylp vs gall stone. Surgery consult, Dr. Singh, help appreciated EKG: sinus tacycardia at 110 bpm on admission Ful liquid diet NS 200 cc/hr Zosyn 3.375 mf IVPB Q8H Flagyl 250 mg IVPB Q8H Zofran IVP Q4H PRN Dilaudid 1mg IVP Q6H PRN Abd US: Hepatomegaly. Echogenic liver may be seen in setting of hepatic parenchymal disease or fatty infiltration. 4 mm echogenic gallbladder focus without posterior acoustic shadowing, favored to reflect a polyp rather than a gallstone. No evidence of gallbladder sludge. No evidence of gallbladder wall thickening or pericholecystic edema. Positive sonographic Moeller's sign as assessed by the senior technical support engineer. Correlate clinically (see full report) Abd/Pelv CT: Fluid noted within small bowel loops without evidence of bowel distension; correlate clinically for possibility of enteritis. Hepatomegaly. Mild hepatic steatosis. Probable small right ovarian cysts (see full report) (2) Leukocytosis Assessment and Plan: elevated WBC with bandemia Zosyn 3.375 mf IVPB Q8H Flagyl 250 mg IVPB Q8H CXR: mild venous congestion blood Cx showed on growth EKG: sinus tacycardia at 110 bpm on admission (3) Vomiting Assessment and Plan: NS 200 cc/hr Zofran IVP Q4H PRN (4) Hepatomegaly Assessment and Plan: As per CT and US. LFTs WNL. Patient is not heavy alcohol user. FLP: tryglycerides 99, LDL 43, HDL 26 f/u Hepatitis panel. (5) Chest pain Assessment and Plan: D DImer 710 f/u CTA Chest PE protocol Dannielle negative this AM EKG: sinus tacycardia at 110 bpm on admission CXR: mild venous congestion Dilaudid 1 mg IVP Q6H PRN severe pain (6) Prophylactic measure Assessment and Plan: Protonix 40 mg IVP daily SCDs Full Liquid diet <Piero Leija Jr. - Last Filed: 12/01/16 11:17> Objective - Vital Signs/Intake and Output Vital Signs (last 24 hours): Temp Pulse Resp BP Pulse Ox 98.0 F 75 20 112/72 98 11/27/16 07:32 11/27/16 07:32 11/27/16 07:32 11/27/16 07:32 11/27/16 07:32 - Labs Labs: 11/27/16 07:01 11/27/16 07:01 PT 13.6 SECONDS (9.7-12.2) H 11/24/16 06:52 INR 1.2 11/24/16 06:52 APTT 29 SECONDS (21-34) 11/24/16 06:52 Attending/Attestation - Attestation I have personally seen and examined this patient.: Yes I have fully participated in the care of the patient.: Yes I have reviewed all pertinent clinical information, including history, physical exam and plan: Yes Notes (Text): 12/01/16 11:17 Resident note and findings reviewed and agree
--- NOTE | 2016-11-25 15:44 | CARD ---
APPROVED REPORT EKG Measurement Heart [id number] <Conclusion> Sinus tachycardia Otherwise normal ECG
[2016-11-25] MEDS ORDERED: Iodixanol 320 MG/ML 100 ML BOTTLE IV ONE (16:50)
--- NOTE | 2016-11-25 17:15 | CT ---
CT chest with IV contrast Indication: chest pain, rib pain Technique: Contiguous axial images were obtained through the chest with intravenous contrast enhancement. Sagittal and coronal reconstructions were generated and reviewed. This CT exam was performed using 1 or more of the falling dose reduction techniques: Automated exposure control, adjustment of the MAA and/or kV according to patient size, and/or use of iterative reconstruction technique. IV Contrast: 100 mL Visipaque 320 Radiation dose (DLP): 419.17 MGy-cm. Comparison: Findings: Visualized portions of the inferior thyroid gland appear unremarkable. The mediastinal and hilar vascular structures appear within normal limits. The heart appears within normal limits of size. Triangular soft tissue within the anterior mediastinum, likely residual thymic tissue. There is suboptimal opacification of the pulmonary arteries due to missed bolus of the intravenous contrast limiting evaluation for pulmonary embolus. Given this limitation, there are no visible intraluminal filling defects within the central pulmonary arteries to suggest central pulmonary embolism. Small left and moderate right sided pleural effusions and associated dependent atelectasis. No pneumothorax. Limited visualization of the upper abdomen appears grossly unremarkable. No acute osseous abnormality is detected. Impression: Triangular soft tissue within the anterior mediastinum, likely residual thymic tissue. There is suboptimal opacification of the pulmonary arteries due to missed bolus of the intravenous contrast limiting evaluation for pulmonary embolus. Given this limitation, there are no visible intraluminal filling defects within the central pulmonary arteries to suggest central pulmonary embolism. Small left and moderate right sided pleural effusions and associated dependent atelectasis.
[2016-11-26] MEDS: Sodium Chloride 0.9% 1,000 ML IV SCH ×6 (03:18→20:45)
[2016-11-26] MEDS: Piperacillin/Tazobact 3.375 GM in Sodium Chloride 100 ML IVPB SCH ×4 (03:19→20:22)
[2016-11-26] MEDS: metroNIDAZOLE IV 500 mg/100 ml 250 MG in Premixed IV 1 EA IVPB SCH ×3 (05:40→22:29)
[2016-11-26 07:20] LABS: CHLORIDE 107 mmol/L (98-107)
[2016-11-26 07:21] LABS: POTASSIUM 3.7 mmol/L (3.6-5.2); SODIUM 138 mmol/L (132-148)
[2016-11-26 07:23] LABS: BILIRUBIN,TOTAL 0.3 mg/dL (0.2-1.3); CARBON DIOXIDE 21 mmol/L (22-30); GFR AFRICAN-AMERICAN > 60
[2016-11-26 07:24] LABS: ALB/GLOB RATIO 1.2 (1.0-2.1); ALKALINE PHOSPHATASE 54 U/L (38-126); ALT/SGPT 75 U/L (9-52); AST/SGOT 51 U/L (14-36); BLOOD UREA NITROGEN 7 mg/dL (7-17); CALCIUM 7.7 mg/dl (8.6-10.4); GLUCOSE,RANDOM 86 mg/dL (65-105); TOTAL PROTEIN 5.9 g/dL (6.3-8.3)
[2016-11-26 08:31] LABS: MAGNESIUM 1.8 mg/dL (1.6-2.3)
--- NOTE | 2016-11-26 10:23 | CP.PCM.PN ---
<Javi PalmaPhillip - Last Filed: 11/26/16 10:20> Subjective - Date & Time of Evaluation Date of Evaluation: 11/26/16 Time of Evaluation: 10:20 - Subjective Subjective: Surgery: Dr. Singh Patient doing a little better. She complains of upper abdominal pain that persists. She occasionally has diarrhea episodes. Tolerated diet yesterday. Denies nausea or vomiting. No fever or chills. Objective - Vital Signs/Intake and Output Vital Signs (last 24 hours): Temp Pulse Resp BP Pulse Ox 98.1 F 67 20 110/73 98 11/26/16 07:42 11/26/16 07:42 11/26/16 07:42 11/26/16 07:42 11/26/16 07:42 Intake and Output: 11/26/16 11/26/16 06:59 18:59 Intake Total 1800 Balance 1800 - Medications Medications: Current Medications Acetaminophen (Tylenol 325mg Tab) 650 mg PO Q6 PRN PRN Reason: Fever >100.4 F Last Admin: 11/25/16 15:03 Dose: 650 mg Hydromorphone HCl (Dilaudid) 1 mg IVP Q6H PRN PRN Reason: Pain, severe (8-10) Last Admin: 11/26/16 05:34 Dose: 1 mg Sodium Chloride (Sodium Chloride 0.9%) 1,000 mls @ 200 mls/hr IV .Q5H [facility] Last Admin: 11/26/16 05:33 Dose: 200 mls/hr Metronidazole 250 mg/ (Miscellaneous) 50 mls @ 100 mls/hr IVPB Q8 [facility] Last Admin: 11/26/16 05:40 Dose: 100 mls/hr Piperacillin Sod/Tazobactam (Sod 3.375 gm/ Sodium Chloride) 100 mls @ 200 mls/ hr IVPB Q6H [facility] Last Admin: 11/26/16 03:19 Dose: 200 mls/hr Ondansetron HCl (Zofran Inj) 4 mg IVP Q6 PRN PRN Reason: Nausea/Vomiting Last Admin: 11/25/16 16:34 Dose: 4 mg Pantoprazole Sodium (Protonix Inj) 40 mg IVP DAILY [facility] Last Admin: 11/25/16 11:50 Dose: 40 mg - Labs Labs: 11/25/16 07:20 05/02/17 06:56 PT 13.6 SECONDS (9.7-12.2) H 11/24/16 06:52 INR 1.2 11/24/16 06:52 APTT 29 SECONDS (21-34) 11/24/16 06:52 - Constitutional Appears: Well, Non-toxic, No Acute Distress - Head Exam Head Exam: ATRAUMATIC, NORMOCEPHALIC - Eye Exam Eye Exam: EOMI, Normal appearance - ENT Exam ENT Exam: Mucous Membranes Moist - Respiratory Exam Respiratory Exam: NORMAL BREATHING PATTERN. absent: Respiratory Distress - Cardiovascular Exam Cardiovascular Exam: REGULAR RHYTHM. absent: Tachycardia - GI/Abdominal Exam GI & Abdominal Exam: Soft, Tenderness (diffusely ). absent: Guarding, Rigid, Rebound Assessment and Plan - Assessment and Plan (Free Text) Assessment: 21 y/o female w/ abdominal pain, most likely enteritis, w/ incidental GB polyp finding Plan: -cleared for d/c from surgical standpoint -d/c on cipro/flagyl -f/u in office in 1-2 weeks for elective surgery scheduling -low fat diet upon discharge -d/w Dr. Singh AKite PGY1 <Woo Singh B - Last Filed: 11/27/16 21:40> Objective - Vital Signs/Intake and Output Vital Signs (last 24 hours): Temp Pulse Resp BP Pulse Ox 98.0 F 75 20 112/72 98 11/27/16 07:32 11/27/16 07:32 11/27/16 07:32 11/27/16 07:32 11/27/16 07:32 - Labs Labs: 11/27/16 07:01 11/27/16 07:01 PT 13.6 SECONDS (9.7-12.2) H 11/24/16 06:52 INR 1.2 11/24/16 06:52 APTT 29 SECONDS (21-34) 11/24/16 06:52 Attending/Attestation - Attestation I have personally seen and examined this patient.: Yes I have fully participated in the care of the patient.: Yes I have reviewed all pertinent clinical information, including history, physical exam and plan: Yes Notes (Text): 11/27/16 21:39 Pt was seen and examined at bedside on 11/26/16 Agree with above note and assessment Pt with resolved Enteritis Primary team wants HIDA scan to r/o cholecystitis No clinical evidence of cholecystitis Plan d.w pt and primary team in detail We will f.u
[2016-11-26 11:29] LABS: BASO % 0.3 % (0.0-2.0); EOS # 0.2 K/uL (0.0-0.7); EOS % 2.2 % (0.0-4.0); HEMATOCRIT 28.6 % (34.0-47.0); LYMPH % 18.4 % (20.0-40.0); MEAN CELL VOLUME 78.4 fL (81.0-99.0); MEAN CORPUSCULAR HEMOGLOBIN 24.7 pg (27.0-31.0); MEAN CORPUSCULAR HGB CONC 31.5 g/dL (33.0-37.0); MEAN PLATELET VOLUME 9.1 fL (7.2-11.7); MONO # 0.8 K/uL (0.0-0.8); RED CELL DISTRIBUTION WIDTH 16.3 % (11.5-14.5); WHITE BLOOD COUNT 11.1 K/uL (4.8-10.8)
--- NOTE | 2016-11-26 15:06 | CP.PCM.PN ---
<Juan Gamboa - Last Filed: 11/26/16 15:07> Subjective - Date & Time of Evaluation Date of Evaluation: 11/26/16 Time of Evaluation: 07:30 - Subjective Subjective: PGY-1 Medicine Progress Note for Dr. Leija Patient seen and examined at bedside. No acute event overnight. Patient lying in bed complaining of abdominal pain. She is still on IV fluids and IV antibiotics. Admits to nausea. Denies fever/chills, cp, SOB, palpitations, vomiting/diarrhea, constipation, incontinence, fatigue, numbness/tingling. Objective - Vital Signs/Intake and Output Vital Signs (last 24 hours): Temp Pulse Resp BP Pulse Ox 98.1 F 67 20 110/73 98 11/26/16 07:42 11/26/16 07:42 11/26/16 07:42 11/26/16 07:42 11/26/16 07:42 Intake and Output: 11/26/16 11/26/16 06:59 18:59 Intake Total 1800 Balance 1800 - Medications Medications: Current Medications Acetaminophen (Tylenol 325mg Tab) 650 mg PO Q6 PRN PRN Reason: Fever >100.4 F Last Admin: 11/26/16 10:28 Dose: 650 mg Hydromorphone HCl (Dilaudid) 1 mg IVP Q6H PRN PRN Reason: Pain, severe (8-10) Last Admin: 11/26/16 12:33 Dose: 1 mg Sodium Chloride (Sodium Chloride 0.9%) 1,000 mls @ 200 mls/hr IV .Q5H [facility] Last Admin: 11/26/16 10:51 Dose: 200 mls/hr Metronidazole 250 mg/ (Miscellaneous) 50 mls @ 100 mls/hr IVPB Q8 [facility] Last Admin: 11/26/16 13:49 Dose: 100 mls/hr Piperacillin Sod/Tazobactam (Sod 3.375 gm/ Sodium Chloride) 100 mls @ 200 mls/ hr IVPB Q6H [facility] Last Admin: 11/26/16 14:12 Dose: 200 mls/hr Ondansetron HCl (Zofran Inj) 4 mg IVP Q6 PRN PRN Reason: Nausea/Vomiting Last Admin: 11/26/16 12:41 Dose: 4 mg Pantoprazole Sodium (Protonix Inj) 40 mg IVP DAILY [facility] Last Admin: 11/26/16 10:23 Dose: 40 mg - Labs Labs: 11/26/16 11:19 11/26/16 06:56 PT 13.6 SECONDS (9.7-12.2) H 11/24/16 06:52 INR 1.2 11/24/16 06:52 APTT 29 SECONDS (21-34) 11/24/16 06:52 - Constitutional Appears: No Acute Distress - Head Exam Head Exam: ATRAUMATIC, NORMOCEPHALIC - Eye Exam Eye Exam: EOMI, Normal appearance Pupil Exam: PERRL - ENT Exam ENT Exam: Mucous Membranes Moist - Neck Exam Neck Exam: Normal Inspection - Respiratory Exam Respiratory Exam: Clear to Ausculation Bilateral, NORMAL BREATHING PATTERN - Cardiovascular Exam Cardiovascular Exam: REGULAR RHYTHM, +S1, +S2 - GI/Abdominal Exam GI & Abdominal Exam: Guarding (mild to deep palpation), Soft, Tenderness, Normal Bowel Sounds. absent: Distended, Firm, Rebound - Extremities Exam Extremities Exam: Normal Capillary Refill - Back Exam Back Exam: absent: CVA tenderness (L), CVA tenderness (R) - Neurological Exam Neurological Exam: Alert, Awake, CN II-XII Intact, Oriented x3 - Psychiatric Exam Psychiatric exam: Normal Affect, Normal Mood - Skin Skin Exam: Dry, Intact, Normal Color, Warm Assessment and Plan - Assessment and Plan (Free Text) Plan: (1) Abdominal pain Assessment and Plan: HIDA SCAN ordered leukocytosis Enteritis, hepatomegaly, small fat containing hernia as per CT scan Abdominal US suggestive of poylp vs gall stone. Surgery consult, Dr. Singh, help appreciated EKG: sinus tacycardia at 110 bpm on admission Ful liquid diet NS 200 cc/hr Zosyn 3.375 mf IVPB Q8H Flagyl 250 mg IVPB Q8H Zofran IVP Q4H PRN Dilaudid 1mg IVP Q6H PRN Abd US: Hepatomegaly. Echogenic liver may be seen in setting of hepatic parenchymal disease or fatty infiltration. 4 mm echogenic gallbladder focus without posterior acoustic shadowing, favored to reflect a polyp rather than a gallstone. No evidence of gallbladder sludge. No evidence of gallbladder wall thickening or pericholecystic edema. Positive sonographic Moeller's sign as assessed by the plastics process hand. Correlate clinically (see full report) Abd/Pelv CT: Fluid noted within small bowel loops without evidence of bowel distension; correlate clinically for possibility of enteritis. Hepatomegaly. Mild hepatic steatosis. Probable small right ovarian cysts (see full report) (2) Leukocytosis Assessment and Plan: elevated WBC Zosyn 3.375 mf IVPB Q8H Flagyl 250 mg IVPB Q8H CXR: mild venous congestion blood Cx showed on growth EKG: sinus tacycardia at 110 bpm on admission (3) Vomiting Assessment and Plan: NS 200 cc/hr Zofran IVP Q4H PRN (4) Hepatomegaly Assessment and Plan: As per CT and US. LFTs WNL. Patient is not heavy alcohol user. FLP: tryglycerides 99, LDL 43, HDL 26 f/u Hepatitis panel. (5) Chest pain Assessment and Plan: D DImer 710 CTA Chest PE protocol: no central PE Danielle negative this AM EKG: sinus tacycardia at 110 bpm on admission CXR: mild venous congestion Dilaudid 1 mg IVP Q6H PRN severe pain (6) Prophylactic measure Assessment and Plan: Protonix 40 mg IVP daily SCDs Full Liquid diet <Piero Leija Jr. - Last Filed: 12/01/16 11:18> Objective - Vital Signs/Intake and Output Vital Signs (last 24 hours): Temp Pulse Resp BP Pulse Ox 98.0 F 75 20 112/72 98 11/27/16 07:32 11/27/16 07:32 11/27/16 07:32 11/27/16 07:32 11/27/16 07:32 - Labs Labs: 11/27/16 07:01 11/27/16 07:01 PT 13.6 SECONDS (9.7-12.2) H 11/24/16 06:52 INR 1.2 11/24/16 06:52 APTT 29 SECONDS (21-34) 11/24/16 06:52 Attending/Attestation - Attestation I have personally seen and examined this patient.: Yes I have fully participated in the care of the patient.: Yes I have reviewed all pertinent clinical information, including history, physical exam and plan: Yes Notes (Text): 12/01/16 11:18 Agree with resident note and findings
[2016-11-27] MEDS: Sodium Chloride 0.9% 1,000 ML IV SCH ×4 (01:12→13:29)
[2016-11-27] MEDS: Piperacillin/Tazobact 3.375 GM in Sodium Chloride 100 ML IVPB SCH ×2 (02:20→10:25)
[2016-11-27] MEDS: metroNIDAZOLE IV 500 mg/100 ml 250 MG in Premixed IV 1 EA IVPB SCH ×2 (05:20→13:25)
[2016-11-27 07:17] LABS: BASO % 0.2 % (0.0-2.0); EOS # 0.3 K/uL (0.0-0.7); EOS % 2.5 % (0.0-4.0); HEMATOCRIT 27.9 % (34.0-47.0); LYMPH # 2.5 K/uL (1.0-4.3); LYMPH % 21.6 % (20.0-40.0); MEAN CELL VOLUME 77.6 fL (81.0-99.0); MEAN CORPUSCULAR HEMOGLOBIN 24.8 pg (27.0-31.0); MEAN PLATELET VOLUME 9.2 fL (7.2-11.7); MONO # 0.7 K/uL (0.0-0.8); MONO % 6.4 % (0.0-10.0); NRBC % 0.1 % (0.0-2.0); RED CELL DISTRIBUTION WIDTH 16.2 % (11.5-14.5); WHITE BLOOD COUNT 11.3 K/uL (4.8-10.8)
[2016-11-27 07:35] VITALS: BP 112/72; PULSE 75; TEMP 98; O2SAT 98
[2016-11-27 07:38] LABS: CHLORIDE 105 mmol/L (98-107)
[2016-11-27 07:39] LABS: SODIUM 138 mmol/L (132-148)
[2016-11-27 07:42] LABS: ALB/GLOB RATIO 1.3 (1.0-2.1); ALKALINE PHOSPHATASE 53 U/L (38-126); AST/SGOT 36 U/L (14-36); BILIRUBIN,TOTAL 0.3 mg/dL (0.2-1.3); BLOOD UREA NITROGEN 8 mg/dL (7-17); CARBON DIOXIDE 23 mmol/L (22-30); GFR AFRICAN-AMERICAN > 60; TOTAL PROTEIN 6.2 g/dL (6.3-8.3)
[2016-11-27 07:43] LABS: ALT/SGPT 76 U/L (9-52); CALCIUM 8.4 mg/dl (8.6-10.4); GLUCOSE,RANDOM 75 mg/dL (65-105)
--- NOTE | 2016-11-27 09:42 | CP.PCM.PN ---
<Arpita Kwan - Last Filed: 11/27/16 15:47> Subjective - Date & Time of Evaluation Date of Evaluation: 11/27/16 Time of Evaluation: 07:00 - Subjective Subjective: GENERAL SURGERY PROGRESS NOTE FOR DR. SINGH Patient seen and examined at bedside. She still complains of upper abdominal pain that is worse in the RUQ. She is NPO this morning for HIDA scan. Objective - Vital Signs/Intake and Output Vital Signs (last 24 hours): Temp Pulse Resp BP Pulse Ox 98.0 F 75 20 112/72 98 11/27/16 07:32 11/27/16 07:32 11/27/16 07:32 11/27/16 07:32 11/27/16 07:32 Intake and Output: 11/27/16 11/27/16 06:59 18:59 Intake Total 1750 Balance 1750 - Medications Medications: Current Medications Acetaminophen (Tylenol 325mg Tab) 650 mg PO Q6 PRN PRN Reason: Fever >100.4 F Last Admin: 11/26/16 22:32 Dose: 650 mg Hydromorphone HCl (Dilaudid) 1 mg IVP Q6H PRN PRN Reason: Pain, severe (8-10) Last Admin: 11/27/16 07:39 Dose: 1 mg Sodium Chloride (Sodium Chloride 0.9%) 1,000 mls @ 200 mls/hr IV .Q5H [facility] Last Admin: 11/27/16 05:53 Dose: Not Given Metronidazole 250 mg/ (Miscellaneous) 50 mls @ 100 mls/hr IVPB Q8 [facility] Last Admin: 11/27/16 05:20 Dose: 100 mls/hr Piperacillin Sod/Tazobactam (Sod 3.375 gm/ Sodium Chloride) 100 mls @ 200 mls/ hr IVPB Q6H [facility] Last Admin: 11/27/16 02:20 Dose: 200 mls/hr Ondansetron HCl (Zofran Inj) 4 mg IVP Q6 PRN PRN Reason: Nausea/Vomiting Last Admin: 11/26/16 12:41 Dose: 4 mg Pantoprazole Sodium (Protonix Inj) 40 mg IVP DAILY [facility] Last Admin: 11/26/16 10:23 Dose: 40 mg - Labs Labs: 11/27/16 07:01 11/27/16 07:01 PT 13.6 SECONDS (9.7-12.2) H 11/24/16 06:52 INR 1.2 11/24/16 06:52 APTT 29 SECONDS (21-34) 11/24/16 06:52 - Constitutional Appears: Non-toxic, No Acute Distress - Eye Exam Eye Exam: EOMI, Normal appearance - Respiratory Exam Respiratory Exam: NORMAL BREATHING PATTERN. absent: Respiratory Distress - Cardiovascular Exam Cardiovascular Exam: +S1, +S2 - GI/Abdominal Exam GI & Abdominal Exam: Soft, Tenderness (moderately tender in RUQ, mildly tender LUQ). absent: Distended, Firm, Guarding, Rigid - Neurological Exam Neurological Exam: Alert, Awake, Oriented x3 - Psychiatric Exam Psychiatric exam: Normal Affect, Normal Mood - Skin Skin Exam: Normal Color, Warm Assessment and Plan - Assessment and Plan (Free Text) Assessment: 21yo F with abdominal pain most likely secondary to entertis with incidental gallbladder polyp finding - Afebrile, VSS - no leukocytosis - AST now normal, ALT still mildly elevated at 76 - Alk phos WNL - HIDA scan normal with patent cystic duct - Clear for DC from surgical standpoint - Low fat diet upon discharge - Patient can follow up outpatient in the office in 1-2 weeks for elective cholecystectomy - Discussed plan with Dr. Francisco Kwan PGY-2 <Woo Singh - Last Filed: 11/27/16 21:44> Objective - Vital Signs/Intake and Output Vital Signs (last 24 hours): Temp Pulse Resp BP Pulse Ox 98.0 F 75 20 112/72 98 11/27/16 07:32 11/27/16 07:32 11/27/16 07:32 11/27/16 07:32 11/27/16 07:32 - Labs Labs: 11/27/16 07:01 11/27/16 07:01 PT 13.6 SECONDS (9.7-12.2) H 11/24/16 06:52 INR 1.2 11/24/16 06:52 APTT 29 SECONDS (21-34) 11/24/16 06:52 Attending/Attestation - Attestation I have personally seen and examined this patient.: Yes I have fully participated in the care of the patient.: Yes I have reviewed all pertinent clinical information, including history, physical exam and plan: Yes Notes (Text): 11/27/16 21:43 Pt was seen and examined at bedside on 11/27/16 Agree with above note and assessment F/U as out pt for GB polyp PO antibiotics Plan d.w pt in detail
--- NOTE | 2016-11-27 10:55 | NM ---
PROCEDURE: Nuclear Medicine Hepatobiliary Scan HISTORY: gallstone, suspected cholecystitis COMPARISON: 11/23/2016. CT abdomen and pelvis TECHNIQUE: 5.0 mCi of technetium 99m Mebrofenin was administered intravenously. Planar images of the abdomen were obtained at 5 min intervals to 60 mins. Delayed images were also obtained. FINDINGS: LIVER: Timely and homogenous uptake. COMMON BILE DUCT: identified at 5 mins. GALLBLADDER: identified at 5 mins. SMALL BOWEL: Identified at 50 mins. IMPRESSION: Normal Hepatobiliary Scan. The cystic duct is patent.
--- NOTE | 2016-11-27 11:31 | CP.PCM.PN ---
<Juan Gamboa - Last Filed: 11/27/16 13:44> Subjective - Date & Time of Evaluation Date of Evaluation: 11/27/16 Time of Evaluation: 08:00 - Subjective Subjective: PGY-1 Medicine Progress Note for Dr. Leija Patient seen and examined at bedside. Patient was NPO overnight for HIDA scan. Patient lying in bed still complaining of abdominal pain. Plan is pending HIDA results. Admits to nausea. Denies fever/chills, cp, SOB, palpitations, vomiting/ diarrhea, constipation, incontinence, fatigue, numbness/tingling. Objective - Vital Signs/Intake and Output Vital Signs (last 24 hours): Temp Pulse Resp BP Pulse Ox 98.0 F 75 20 112/72 98 11/27/16 07:32 11/27/16 07:32 11/27/16 07:32 11/27/16 07:32 11/27/16 07:32 Intake and Output: 11/27/16 11/27/16 06:59 18:59 Intake Total 1750 Balance 1750 - Medications Medications: Current Medications Acetaminophen (Tylenol 325mg Tab) 650 mg PO Q6 PRN PRN Reason: Fever >100.4 F Last Admin: 11/26/16 22:32 Dose: 650 mg Hydromorphone HCl (Dilaudid) 1 mg IVP Q6H PRN PRN Reason: Pain, severe (8-10) Last Admin: 11/27/16 07:39 Dose: 1 mg Sodium Chloride (Sodium Chloride 0.9%) 1,000 mls @ 200 mls/hr IV .Q5H [facility] Last Admin: 11/27/16 05:53 Dose: Not Given Metronidazole 250 mg/ (Miscellaneous) 50 mls @ 100 mls/hr IVPB Q8 [facility] Last Admin: 11/27/16 05:20 Dose: 100 mls/hr Piperacillin Sod/Tazobactam (Sod 3.375 gm/ Sodium Chloride) 100 mls @ 200 mls/ hr IVPB Q6H [facility] Last Admin: 11/27/16 10:25 Dose: 200 mls/hr Ondansetron HCl (Zofran Inj) 4 mg IVP Q6 PRN PRN Reason: Nausea/Vomiting Last Admin: 11/26/16 12:41 Dose: 4 mg Pantoprazole Sodium (Protonix Inj) 40 mg IVP DAILY [facility] Last Admin: 11/27/16 10:24 Dose: 40 mg - Labs Labs: 11/27/16 07:01 11/27/16 07:01 PT 13.6 SECONDS (9.7-12.2) H 11/24/16 06:52 INR 1.2 11/24/16 06:52 APTT 29 SECONDS (21-34) 11/24/16 06:52 - Constitutional Appears: No Acute Distress - Head Exam Head Exam: ATRAUMATIC, NORMOCEPHALIC - Eye Exam Eye Exam: EOMI, Normal appearance Pupil Exam: PERRL - ENT Exam ENT Exam: Mucous Membranes Moist - Neck Exam Neck Exam: Normal Inspection - Respiratory Exam Respiratory Exam: Clear to Ausculation Bilateral, NORMAL BREATHING PATTERN - Cardiovascular Exam Cardiovascular Exam: RRR, +S1, +S2 - GI/Abdominal Exam GI & Abdominal Exam: Soft, Tenderness (Right side of abdomen, RUQ > RLQ), Normal Bowel Sounds. absent: Firm, Guarding, Rigid, Rebound - Extremities Exam Extremities Exam: Normal Capillary Refill. absent: Calf Tenderness - Back Exam Back Exam: absent: CVA tenderness (L), CVA tenderness (R) - Neurological Exam Neurological Exam: Alert, Awake, CN II-XII Intact, Oriented x3 - Psychiatric Exam Psychiatric exam: Normal Affect, Normal Mood - Skin Skin Exam: Dry, Intact, Normal Color, Warm Assessment and Plan - Assessment and Plan (Free Text) Plan: (1) Abdominal pain Assessment and Plan: HIDA SCAN: Normal Hepatobiliary Scan. The cystic duct is patent (see full report ) leukocytosis uptrending slightly, 11.3 Enteritis, hepatomegaly, small fat containing hernia as per CT scan Abdominal US suggestive of poylp vs gall stone. Surgery consult, Dr. Singh, help appreciated EKG: sinus tacycardia at 110 bpm on admission Ful liquid diet NS 200 cc/hr Zosyn 3.375 mf IVPB Q8H Flagyl 250 mg IVPB Q8H Zofran IVP Q4H PRN Dilaudid 1mg IVP Q6H PRN Abd US: Hepatomegaly. Echogenic liver may be seen in setting of hepatic parenchymal disease or fatty infiltration. 4 mm echogenic gallbladder focus without posterior acoustic shadowing, favored to reflect a polyp rather than a gallstone. No evidence of gallbladder sludge. No evidence of gallbladder wall thickening or pericholecystic edema. Positive sonographic Moeller's sign as assessed by the property and casualty insurance agent. Correlate clinically (see full report) Abd/Pelv CT: Fluid noted within small bowel loops without evidence of bowel distension; correlate clinically for possibility of enteritis. Hepatomegaly. Mild hepatic steatosis. Probable small right ovarian cysts (see full report) (2) Leukocytosis Assessment and Plan: elevated WBC Zosyn 3.375 mf IVPB Q8H Flagyl 250 mg IVPB Q8H CXR: mild venous congestion blood Cx showed on growth EKG: sinus tacycardia at 110 bpm on admission (3) Vomiting Assessment and Plan: NS 200 cc/hr Zofran IVP Q4H PRN (4) Hepatomegaly Assessment and Plan: As per CT and US. LFTs WNL. Patient is not heavy alcohol user. FLP: tryglycerides 99, LDL 43, HDL 26 f/u Hepatitis panel. (5) Chest pain Assessment and Plan: D DImer 710 CTA Chest PE protocol: no central PE Danielle negative this AM EKG: sinus tacycardia at 110 bpm on admission CXR: mild venous congestion Dilaudid 1 mg IVP Q6H PRN severe pain (6) Prophylactic measure Assessment and Plan: Protonix 40 mg IVP daily SCDs Full Liquid diet <Piero Leija Jr. - Last Filed: 12/01/16 11:21> Objective - Vital Signs/Intake and Output Vital Signs (last 24 hours): Temp Pulse Resp BP Pulse Ox 98.0 F 75 20 112/72 98 11/27/16 07:32 11/27/16 07:32 11/27/16 07:32 11/27/16 07:32 11/27/16 07:32 - Labs Labs: 11/27/16 07:01 11/27/16 07:01 PT 13.6 SECONDS (9.7-12.2) H 11/24/16 06:52 INR 1.2 11/24/16 06:52 APTT 29 SECONDS (21-34) 11/24/16 06:52 Attending/Attestation - Attestation I have personally seen and examined this patient.: Yes I have fully participated in the care of the patient.: Yes I have reviewed all pertinent clinical information, including history, physical exam and plan: Yes Notes (Text): 12/01/16 11:21 Agree with resident note and findings
--- NOTE | 2016-11-27 13:56 | CP.PCM.DIS ---
Provider - Provider Date of Admission: 11/26/16 09:26 Attending physician: Piero Leija Jr, MD Consults: Surgery: Francisco Time Spent in preparation of Discharge (in minutes): 40 Diagnosis - Discharge Diagnosis (1) Enteritis Status: Acute Comment: see hospital course (2) Gallbladder polyp Status: Acute Comment: see hospital course (3) SHARMA (nonalcoholic steatohepatitis) Status: Acute Comment: see hospital course Hospital Course - Lab Results Lab Results: Most Recent Lab Values WBC 11.3 K/uL (4.8-10.8) H 11/27/16 07:01 RBC 3.60 Mil/uL (3.80-5.20) L 11/27/16 07:01 Hgb 8.9 g/dL (11.0-16.0) L 11/27/16 07:01 Hct 27.9 % (34.0-47.0) L 11/27/16 07:01 MCV 77.6 fL (81.0-99.0) L 11/27/16 07:01 MCH 24.8 pg (27.0-31.0) L 11/27/16 07:01 MCHC 32.0 g/dL (33.0-37.0) L 11/27/16 07:01 RDW 16.2 % (11.5-14.5) H 11/27/16 07:01 Plt Count 270 K/uL (130-400) 11/27/16 07:01 MPV 9.2 fL (7.2-11.7) 11/27/16 07:01 Neut % (Auto) 69.3 % (50.0-75.0) 11/27/16 07:01 Lymph % (Auto) 21.6 % (20.0-40.0) 11/27/16 07:01 Oliver % (Auto) 6.4 % (0.0-10.0) 11/27/16 07:01 Eos % (Auto) 2.5 % (0.0-4.0) 11/27/16 07:01 Baso % (Auto) 0.2 % (0.0-2.0) 11/27/16 07:01 Neut # 7.9 K/uL (1.8-7.0) H 11/27/16 07:01 Lymph # 2.5 K/uL (1.0-4.3) 11/27/16 07:01 Oliver # 0.7 K/uL (0.0-0.8) 11/27/16 07:01 Eos # 0.3 K/uL (0.0-0.7) 11/27/16 07:01 Baso # 0.0 K/uL (0.0-0.2) 11/27/16 07:01 Neutrophils % (Manual) 81 % (50-75) H 11/24/16 06:52 Band Neutrophils % 4 % (0-2) H 11/24/16 06:52 Lymphocytes % (Manual) 12 % (20-40) L 11/24/16 06:52 Monocytes % (Manual) 3 % (0-10) 11/24/16 06:52 Eosinophils % (Manual) 1 % (0-4) 11/23/16 12:26 Platelet Estimate Normal (NORMAL) 11/24/16 06:52 Large Platelets Present 11/24/16 06:52 Giant Platelets Present 11/24/16 06:52 Polychromasia Slight 11/23/16 12:26 Hypochromasia (manual) Slight 11/24/16 06:52 Poikilocytosis (manual Slight 11/23/16 12:26 Anisocytosis (manual) Slight 11/24/16 06:52 Microcytosis (manual) Slight 11/24/16 06:52 Tear Drop Cells Slight 11/23/16 12:26 Ovalocytes Slight 11/24/16 06:52 PT 13.6 SECONDS (9.7-12.2) H 11/24/16 06:52 INR 1.2 11/24/16 06:52 APTT 29 SECONDS (21-34) 11/24/16 06:52 D-Dimer, Quantitative 710 ng/mlDDU (0-243) H 11/25/16 09:12 Sodium 138 mmol/L (132-148) 11/27/16 07:01 Potassium 4.0 mmol/L (3.6-5.2) 11/27/16 07:01 Chloride 105 mmol/L (98-107) 11/27/16 07:01 Carbon Dioxide 23 mmol/L (22-30) 11/27/16 07:01 Anion Gap 14 (10-20) 11/27/16 07:01 BUN 8 mg/dL (7-17) 11/27/16 07:01 Creatinine 0.6 MG/DL (0.7-1.2) L 11/27/16 07:01 Est GFR ( Amer) > 60 11/27/16 07:01 Est GFR (Non-Af Amer) > 60 11/27/16 07:01 Random Glucose 75 mg/dL (65-105) 11/27/16 07:01 Hemoglobin A1c 5.8 % (4.2-6.5) 11/24/16 06:52 Calcium 8.4 mg/dl (8.6-10.4) L 11/27/16 07:01 Magnesium 1.8 mg/dL (1.6-2.3) 11/26/16 06:56 Total Bilirubin 0.3 mg/dL (0.2-1.3) 11/27/16 07:01 AST 36 U/L (14-36) D 11/27/16 07:01 ALT 76 U/L (9-52) H 11/27/16 07:01 Alkaline Phosphatase 53 U/L (38-126) 11/27/16 07:01 Total Creatine Kinase 113 U/L (30-135) 11/25/16 19:45 CK-MB (Mass) 0.23 ng/mL (0.0-3.38) 11/25/16 19:45 Troponin I, Quant < 0.0120 ng/mL (0.00-0.120) 11/25/16 19:45 Total Protein 6.2 g/dL (6.3-8.3) L 11/27/16 07:01 Albumin 3.5 g/dL (3.5-5.0) 11/27/16 07:01 Globulin 2.8 gm/dL (2.2-3.9) 11/27/16 07:01 Albumin/Globulin Ratio 1.3 (1.0-2.1) 11/27/16 07:01 Triglycerides 99 mg/dL (0-149) 11/24/16 06:52 Cholesterol 95 mg/dL (0-199) 11/24/16 06:52 LDL Cholesterol Direct 43 mg/dL (0-129) 11/24/16 06:52 HDL Cholesterol 26 mg/dL (30-70) L 11/24/16 06:52 Lipase 113 U/L (23-300) 11/23/16 12:26 Urine Color Yellow (YELLOW) 11/23/16 11:51 Urine Clarity Clear (Clear) 11/23/16 11:51 Urine pH 5.0 (5.0-8.0) 11/23/16 11:51 Ur Specific [place] 1.018 (1.003-1.030) 11/23/16 11:51 Urine Protein Negative mg/dL (NEGATIVE) 11/23/16 11:51 Urine Glucose (UA) Normal mg/dL (Normal) 11/23/16 11:51 Urine Ketones Negative mg/dL (NEGATIVE) 11/23/16 11:51 Urine Blood Negative (NEGATIVE) 11/23/16 11:51 Urine Nitrate Negative (NEGATIVE) 11/23/16 11:51 Urine Bilirubin Negative (NEGATIVE) 11/23/16 11:51 Urine Urobilinogen Normal mg/dL (0.2-1.0) 11/23/16 11:51 Ur Leukocyte Esterase Neg Joel/uL (Negative) 11/23/16 11:51 Urine WBC (Auto) 1 /hpf (0-5) 11/23/16 11:51 Urine RBC (Auto) < 1 /hpf (0-3) 11/23/16 11:51 Ur Squamous Epith Cells 7 /hpf (0-5) H 11/23/16 11:51 Urine Bacteria Rare (<OCC) 11/23/16 11:51 Urine HCG, Qual Negative (NEGATIVE) 11/26/16 19:23 Hepatitis A IgM Ab Negative (NEGATIVE) 11/24/16 06:52 Hep Bs Antigen Negative (NEGATIVE) 11/24/16 06:52 Hep B Core IgM Ab Negative (NEGATIVE) 11/24/16 06:52 Hepatitis C Antibody Negative (NEGATIVE) 11/24/16 06:52 - Hospital Course Hospital Course: 21 year old female with no PMHx presents to the ED after she experienced severe abdominal pain at work this AM. Patient reports she has had ongoing abdominal pain for the past month. Pain is intermittent, across her upper abdomen with some radiation to her back. Pain is not related to food intake and is exacerbated at night when she lays on her side. Pain is also worst with deep inspiration. She was in the ED when she had the very first episode of pain. She was told it was "just gas" and was sent home. She admits to a fatty diet. Last night she had fried fish, fried shrimp and kyrgyz fries. Today she had a [employer] burger for breakfast. Admits to 2 episodes of nausea and vomiting today. Reports subjective fevers and chills since yesterday. Denies weight loss. Admits to decreased appetite and feeling thirsty. Denies constipation, but admits to 1 loose stool yesterday. She also reports chest wall discomfort and pain for the past 2 days. Admits pain is worst when she presses on her chest. Denies reflux or metallic taste. Patient was admitted for abdominal pain and leukocytosis likely secondary to enteritis. She was found to have N.A.S.H and small fat containing hernia as well. Abd US revealed Hepatomegaly. Echogenic liver may be seen in setting of hepatic parenchymal disease or fatty infiltration. 4 mm echogenic gallbladder focus without posterior acoustic shadowing, favored to reflect a polyp rather than a gallstone. No evidence of gallbladder sludge. No evidence of gallbladder wall thickening or pericholecystic edema. Positive sonographic Moeller's sign as assessed by the printing roller polisher (see full report). Abd/Pelv CT demonstrated Fluid noted within small bowel loops without evidence of bowel distension; correlate clinically for possibility of enteritis. Hepatomegaly. Mild hepatic steatosis. Probable small right ovarian cysts (see full report). Surgery (Dr. Singh) was consulted. Patient was made NPO and started on IV fluids. Patient was also started on Zosyn and flagy. CXR showed mild venous congestion. Patient was changed over to a full liquid diet two days later then eventually advanced to regular diet. On 11/26 patient had a HIDA scan which was normal. At time time, patient was deemed medically stable for discharge to home by Dr. Leija. Patient was sent home with antibiotics and told to follow up with surgery and GI as outpatient. This is a summary of the hospital course. For more specific details, please refer to EMR. Discharge Plan - Follow Up Plan Condition: STABLE Disposition: HOME/ ROUTINE
== END 2016-11-27 14:38 | disposition home or self-care (01) | DRG 813 ==
LOC: C.ER 10:46 → C.9E 15:39 → C.3T 17:38 → OBSVTOIN 11-26 09:26
PROVIDERS: ADMIT Internal Medicine; ATTEND Internal Medicine
DX: K52.9 Noninfective gastroenteritis and colitis, unspecified (principal); K75.81 Nonalcoholic steatohepatitis (NASH); K82.4 Cholesterolosis of gallbladder; D72.829 Elevated white blood cell count, unspecified; R07.89 Other chest pain; F17.210 Nicotine dependence, cigarettes, uncomplicated

== ENCOUNTER 2017-01-13 15:34 | Emergency (ER) | payer MEDICAID ==
[2017-01-13 16:01] VITALS: TEMP 98.2
[2017-01-13] MEDS ORDERED: Sodium Chloride 0.9% 1,000 ML IV ONE (18:10)
[2017-01-13 18:31] LABS: BASO % 0.2 % (0.0-2.0); EOS # 0.3 K/uL (0.0-0.7); EOS % 1.6 % (0.0-4.0); HEMATOCRIT 30.7 % (34.0-47.0); LYMPH # 3.2 K/uL (1.0-4.3); LYMPH % 18.8 % (20.0-40.0); MEAN CELL VOLUME 78.6 fL (81.0-99.0); MEAN CORPUSCULAR HEMOGLOBIN 24.3 pg (27.0-31.0); MEAN CORPUSCULAR HGB CONC 30.9 g/dL (33.0-37.0); MEAN PLATELET VOLUME 8.4 fL (7.2-11.7); RED CELL DISTRIBUTION WIDTH 16.6 % (11.5-14.5); WHITE BLOOD COUNT 16.9 K/uL (4.8-10.8)
[2017-01-13 18:35] LABS: CHLORIDE 107 mmol/L (98-107)
[2017-01-13 18:36] LABS: POTASSIUM 3.7 mmol/L (3.6-5.2); SODIUM 139 mmol/L (132-148)
[2017-01-13 18:38] LABS: BILIRUBIN,TOTAL 0.2 mg/dL (0.2-1.3); CARBON DIOXIDE 22 mmol/L (22-30); GFR AFRICAN-AMERICAN > 60
[2017-01-13 18:39] LABS: ALB/GLOB RATIO 1.4 (1.0-2.1); ALKALINE PHOSPHATASE 51 U/L (38-126); ALT/SGPT 18 U/L (9-52); AST/SGOT 11 U/L (14-36); BLOOD UREA NITROGEN 8 mg/dL (7-17); CALCIUM 8.6 mg/dl (8.6-10.4); GLUCOSE,RANDOM 81 mg/dL (65-105); TOTAL PROTEIN 6.7 g/dL (6.3-8.3)
[2017-01-13 18:42] LABS: RBC URINE 14 /hpf (0-3); URINE BILIRUBIN NEGATIVE (NEGATIVE); URINE BLOOD 2+ (NEGATIVE); URINE COLOR Yellow (YELLOW); URINE GLUCOSE (UA) NORMAL (Normal); URINE KETONE NEGATIVE (NEGATIVE); URINE LEUKOCYTE ESTERASE 1+ Leu/uL (Negative); URINE PROTEIN NEGATIVE (NEGATIVE); URINE UROBILINOGEN NORMAL mg/dL (0.2-1.0); WBC URINE 14 /hpf (0-5)
--- NOTE | 2017-01-13 19:14 | US ---
EXAM: US Abdomen Limited, Right Upper Quadrant CLINICAL HISTORY: 21 years old, female; Pain; Abdominal pain; Epigastric; Additional info: Ruq pain TECHNIQUE: Real-time ultrasound of the right upper quadrant with image documentation. EXAM DATE/TIME: Exam ordered 01/13/2017 6:11 PM COMPARISON: US - ABDOMEN LIMITED 11/23/2016 11:41:00 AM FINDINGS: Liver: The liver measures 21.5 cm in craniocaudal span. The liver is mildly heterogeneous in echotexture. There is normal blood flow direction in the main portal vein. Hepatic veins are patent and show normal phasic flow pattern. No intrahepatic bile duct dilation. Gallbladder: The gallbladder is collapsed. A tiny 3 mm gallstone or polyp is suggested within the gallbladder Common bile duct: Common bile duct measures 3 mm. No stones. No dilation. Pancreas: Unremarkable as visualized. Right kidney: The right kidney measures 11.2 x 5.2 x 5.5 cm. No stones. No hydronephrosis. IMPRESSION: 1. Collapsed gallbladder with tiny 3 mm gallstone or polyp 2. Mild hepatomegaly with heterogeneous liver echotexture suggesting an underlying infiltrative process such as fatty infiltration or fibrosis.
--- NOTE | 2017-01-13 19:23 | C.PDOC ---
Time Seen by Provider: 01/13/17 18:03 Chief Complaint (Nursing): Abdominal Pain History Per: Patient Onset/Duration Of Symptoms: Hrs Current Symptoms Are (Timing): Still Present Severity: Moderate Location Of Pain/Discomfort: RUQ Radiation Of Pain To:: Back Associated Symptoms: Nausea, Vomiting Alleviating Factors: None Additional History Per: Prior Records Past Medical History Reviewed: Historical Data, Nursing Documentation, Vital Signs Vital Signs: Last Vital Signs Temp 98.2 F 01/13/17 15:58 Pulse 87 01/13/17 15:58 Resp BP 104/67 01/13/17 15:58 Pulse Ox 100 01/13/17 19:23 - Medical History PMH: Gall Bladder Disease (gallstones 2017) Family History: States: Unknown Family Hx - Social History Hx Alcohol Use: No Hx Substance Use: No - Immunization History Hx Tetanus Toxoid Vaccination: No Hx Influenza Vaccination: No Hx Pneumococcal Vaccination: No Review Of Systems Except As Marked, All Systems Reviewed And Found Negative. Constitutional: Negative for: Weakness Cardiovascular: Negative for: Chest Pain Respiratory: Negative for: Shortness of Breath Gastrointestinal: Positive for: Nausea, Vomiting, Abdominal Pain. Negative for : Diarrhea Genitourinary: Negative for: Dysuria Musculoskeletal: Positive for: Back Pain. Negative for: Neck Pain Neurological: Negative for: Weakness, Numbness, Seizures, Altered Mental Status Physical Exam - Physical Exam Appears: Non-toxic, No Acute Distress Skin: Normal Color, Warm, Dry, No Rash Head: Atraumatic, Normacephalic Eye(s): bilateral: PERRL, EOMI Neck: Normal ROM, Supple Cardiovascular: Rhythm Regular Respiratory: Normal Breath Sounds, No Accessory Muscle Use Gastrointestinal/Abdominal: Soft, Tenderness (RUQ) Back: No CVA Tenderness Extremity: Normal ROM Neurological/Psych: Oriented x3, Normal Motor, Normal Sensation ED Course And Treatment - Laboratory Results Result Diagrams: 01/13/17 18:24 01/13/17 18:24 Lab Interpretation: Abnormal Interpretation Of Abnormal: Leukocytosis Urine POC: Negative O2 Sat by Pulse Oximetry: 100 Pulse Ox Interpretation: Normal - CT Scan/US RUQ sonon Other Rad Studies (CT/US): Read By Radiologist, Radiology Report Reviewed CT/US Interpretation: IMPRESSION: 1. Collapsed gallbladder with tiny 3 mm gallstone or polyp. . 2. Mild hepatomegaly with heterogeneous liver echotexture suggesting an. underlying infiltrative process such as fatty infiltration or fibrosis. Disposition - Disposition Disposition Time: 19:59 Condition: FAIR - Clinical Impression Clinical Impression: Abdominal pain, Leukocytosis Physician Patient Turnover Patient Signed Over To: Fabrice Rivas Handoff Comments: to call surgical consult.
[2017-01-13] MEDS ORDERED: Morphine 4 MG/ML VIAL IV ONE (20:06)
[2017-01-13] MEDS ORDERED: Morphine 4 MG/ML VIAL ONE (20:14)
[2017-01-13 20:21] VITALS: RESP 20; O2SAT 98
[2017-01-13] MEDS ORDERED: Iodixanol 320 mg/ml 150 ml Bottle IV ONE (21:14)
--- NOTE | 2017-01-13 22:22 | CT ---
EXAM: CT Abdomen and Pelvis With Intravenous Contrast CLINICAL HISTORY: 21 years old, female; Pain; Abdominal pain; Epigastric; Additional info: Epigastric, gb us neg today TECHNIQUE: Axial computed tomography images of the abdomen and pelvis with intravenous contrast. This CT exam was performed using one or more of the following dose reduction techniques: automated exposure control, adjustment of the mA and/or kV according to patient size, and/or use of iterative reconstruction technique. Coronal and sagittal reformatted images were created and reviewed. CONTRAST: 100 mL of visi administered intravenously. COMPARISON: US - RIGHT UPPER QUADRANT 01/13/2017 6:50:21 PM FINDINGS: Lower thorax: Minimal atelectasis. Trace bilateral pleural effusions. ABDOMEN: Liver: Mild hepatomegaly. Gallbladder and bile ducts: No calcified stones. No ductal dilation. Pancreas: No ductal dilation. No mass. Spleen: No splenomegaly. Adrenals: No mass. Kidneys and ureters: Punctate calculus within RIGHT kidney. No hydronephrosis. Stomach and bowel: No definite mural thickening. No obstruction. Appendix: Normal caliber. No definite inflammation. PELVIS: Bladder: Unremarkable. Reproductive: 2.5 x 2.1 x 1.9 cm hypodense lesion within RIGHT ovary. ABDOMEN and PELVIS: Intraperitoneal space: Trace free fluid within pelvis. No free air. Bones/joints: No acute fracture. Soft tissues: Tiny umbilical hernia containing fat. Vasculature: Unremarkable. No aneurysm. Lymph nodes: No pathologically enlarged lymph nodes. IMPRESSION: 1. Possible RIGHT ovarian cyst. Suggest ultrasound. 2. Incidental/non-acute findings are described above.
[2017-01-13 23:06] VITALS: BP 112/74; PULSE 78
== END 2017-01-13 23:06 | disposition home or self-care (01) ==
LOC: C.ER 15:34
DX: R10.31 Right lower quadrant pain (principal); D72.829 Elevated white blood cell count, unspecified
CPT/HCPCS: 74177; 76705; 80053; 81001; 83690; 84703; 85025; 96361; 96374; 96375; 99284; J1885; J2270; J2765; J7040; Q9965

== ENCOUNTER 2017-03-18 17:37 | Emergency (ER) | payer MEDICAID ==
[2017-03-18 17:58] VITALS: BMI 35.6
[2017-03-18 18:03] VITALS: BP 122/70; PULSE 81; RESP 18; TEMP 98.1; O2SAT 96
--- NOTE | 2017-03-18 18:20 | C.PDOC ---
Time Seen by Provider: 03/18/17 18:05 Chief Complaint (Nursing): Cough, Cold, Congestion History Per: Patient Onset/Duration Of Symptoms: Days (about 1 week) Current Symptoms Are (Timing): Still Present Sick Contacts (Context): Family Member(s) (Son) Associated Symptoms: Cough, Sputum Severity: Moderate Recent travel outside of the [place]: No Additional History Per: Prior Records Past Medical History Reviewed: Historical Data, Nursing Documentation, Vital Signs Vital Signs: Last Vital Signs Temp 98.1 F 03/18/17 17:58 Pulse 81 03/18/17 17:58 Resp 18 03/18/17 17:58 BP 122/70 03/18/17 17:58 Pulse Ox 96 03/18/17 17:58 - Medical History PMH: Gall Bladder Disease (gallstones 2017) Family History: States: Unknown Family Hx - Social History Hx Tobacco Use: Yes Hx Alcohol Use: No Hx Substance Use: No - Immunization History Hx Tetanus Toxoid Vaccination: No Hx Influenza Vaccination: No Hx Pneumococcal Vaccination: No Review Of Systems Except As Marked, All Systems Reviewed And Found Negative. Constitutional: Positive for: Malaise ENT: Negative for: Throat Pain Respiratory: Positive for: Cough, Sputum. Negative for: Hemoptysis Genitourinary: Negative for: Dysuria Musculoskeletal: Negative for: Neck Pain, Leg Pain Skin: Negative for: Rash Neurological: Negative for: Weakness, Numbness, Seizures Physical Exam - Physical Exam Appears: Non-toxic, No Acute Distress Skin: Normal Color, Warm, Dry, No Rash Head: Atraumatic, Normacephalic Eye(s): bilateral: PERRL, EOMI Neck: Normal ROM, Supple Cardiovascular: Rhythm Regular Respiratory: Normal Breath Sounds, No Accessory Muscle Use Gastrointestinal/Abdominal: Soft, No Tenderness Back: No CVA Tenderness Extremity: Normal ROM, No Pedal Edema, No Calf Tenderness Neurological/Psych: Oriented x3, Normal Speech, Normal Motor, Normal Sensation ED Course And Treatment O2 Sat by Pulse Oximetry: 96 Pulse Ox Interpretation: Normal Disposition Counseled Patient/Family Regarding: Diagnosis, Need For Followup, Rx Given, Smoking Cessation - Disposition Disposition: HOME/ ROUTINE Disposition Time: 18:20 Condition: STABLE Additional Instructions: Stop smoking. Follow up with your doctor this week. Return to the ER if you develop high fever, shortness of breath, worsening of symptoms or if you have any other concerns. Prescriptions: Albuterol HFA [Ventolin HFA 90 mcg/actuation (8 g)] 2 puff IH Q4 PRN #1 unit PRN Reason: Cough And Congestion Azithromycin [Zithromax] 1 dose PO DAILY #1 pkt Instructions: Acute Bronchitis (ED) Forms: [employer] (Palestinian) - Clinical Impression Clinical Impression: Acute bronchitis
== END 2017-03-18 18:26 | disposition home or self-care (01) ==
LOC: C.ER 17:37
DX: J20.9 Acute bronchitis, unspecified (principal)

== ENCOUNTER 2017-03-30 12:09 | Emergency (ER) | payer MEDICAID ==
[2017-03-30 12:18] VITALS: RESP 18; TEMP 97.5
[2017-03-30 12:21] VITALS: BMI 36.6
--- NOTE | 2017-03-30 12:57 | C.PDOC ---
History Of Present Illness A 21 year old female, whose past medical history includes gallbladder disease, presents to the emergency department for right lower back pain, which gradually developed over the past 4 days.The patient reports the pain is localized, non- radiating, and worsens with movement. She denies any recent trauma or injury, fever, chills, abdominal pain, nausea, vomiting, dysuria, hematuria, UTI symptoms, saddle anesthesia, incontinence, denies weakness, sensory or vascular deficits, or any other complaints at this time. Ambulate to ED for evaluation, not in any apparent distress. Time Seen by Provider: 03/30/17 12:30 Chief Complaint (Nursing): Back Pain History Per: Patient History/Exam Limitations: no limitations Onset/Duration Of Symptoms: Days (x 4 days ), Gradual Current Symptoms Are (Timing): Still Present Previous Symptoms: Back Pain Past Medical History Vital Signs: Last Vital Signs Temp 97.5 F L 03/30/17 12:17 Pulse 86 03/30/17 12:17 Resp 18 03/30/17 12:17 BP 110/69 03/30/17 12:17 Pulse Ox 100 03/30/17 13:37 - Medical History PMH: Gall Bladder Disease (gallstones 2017) Family History: States: Unknown Family Hx - Social History Hx Tobacco Use: Yes Hx Alcohol Use: No Hx Substance Use: No - Immunization History Hx Tetanus Toxoid Vaccination: No Hx Influenza Vaccination: No Hx Pneumococcal Vaccination: No Review Of Systems Except As Marked, All Systems Reviewed And Found Negative. Constitutional: Negative for: Fever, Chills ENT: Negative for: Throat Pain Gastrointestinal: Negative for: Nausea, Abdominal Pain Genitourinary: Negative for: Dysuria, Frequency, Incontinence, Hematuria, Vaginal Discharge, Vaginal Bleeding Musculoskeletal: Positive for: Back Pain (right lower back pain ) Skin: Negative for: Rash Neurological: Negative for: Weakness, Numbness, Altered Mental Status, Headache , Dizziness Physical Exam - Physical Exam Appears: Well, Non-toxic, No Acute Distress Skin: Normal Color, Warm, Dry Head: Normacephalic Eye(s): bilateral: PERRL Throat: No Erythema Neck: Supple Cardiovascular: Rhythm Regular Respiratory: No Decreased Breath Sounds, No Accessory Muscle Use, No Stridor, No Wheezing Gastrointestinal/Abdominal: Soft, No Tenderness, No Distention, No Guarding, No Rebound Back: No CVA Tenderness, Decreased ROM (L-spine due to pain), Muscle Spasm ( Right lumbar paraspinal), Paraspinal Tenderness (right paraspinal lumbar tenderness) Extremity: No Tenderness, No Pedal Edema, No Deformity Neurological/Psych: Oriented x3, Normal Speech, Normal Motor, Normal Sensation, Normal Reflexes ED Course And Treatment O2 Sat by Pulse Oximetry: 100 Pulse Ox Interpretation: Normal Progress Note: On re-evaluation, pt is afebrile, hemodynamicaly stable. Non- toxic. AMbulatory in ED with stable gait. PUlseOx 100% RA. ENT: no acute findings. Neck: Supple. Lungs: CTA B/L, BS equal B/L. ABd: benign. Back: (- ) CVA tenderness. UA results review and appears noramal. PT has clinical findings c/w angioedema. Pt advised. ref. 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 return i any new changes. Medical Decision Making Medical Decision Making: Treatment Plan: -- test -- Urinalysis Progress Notes: Disposition Counseled Patient/Family Regarding: Diagnosis, Need For Followup - Disposition Referrals: [facility] [Outside] Disposition: HOME/ ROUTINE Disposition Time: 13:50 Condition: STABLE Additional Instructions: Avoid physical activity for 1 week take pain medication as prescribed as need Follow up with PMD in 2- 3days for re-evaluation. Return to ED if any worsening or new changes. Prescriptions: Methocarbamol [Robaxin] 500 mg PO TID #14 tab traMADol [Ultram] 50 mg PO TID #7 tab Instructions: Back Pain (ED) Forms: [employer] (Hebrew) - Clinical Impression Clinical Impression: Low back pain - Scribe Statement The provider has reviewed the documentation as recorded by the Scribe Abby Cooper All medical record entries made by the Scribe were at my direction and personally dictated by me. I have reviewed the chart and agree that the record accurately reflects my personal performance of the history, physical exam, medical decision making, and the department course for this patient. I have also personally directed, reviewed, and agree with the discharge instructions and disposition.
[2017-03-30 13:48] LABS: RBC URINE 3 /hpf (0-3); URINE BILIRUBIN NEGATIVE (NEGATIVE); URINE BLOOD NEGATIVE (NEGATIVE); URINE COLOR Yellow (YELLOW); URINE GLUCOSE (UA) NORMAL (Normal); URINE KETONE NEGATIVE (NEGATIVE); URINE LEUKOCYTE ESTERASE NEG Leu/uL (Negative); URINE PROTEIN NEGATIVE (NEGATIVE); URINE UROBILINOGEN NORMAL mg/dL (0.2-1.0); WBC URINE 2 /hpf (0-5)
[2017-03-30 14:24] VITALS: BP 100/65; PULSE 75; O2SAT 98
== END 2017-03-30 14:25 | disposition home or self-care (01) ==
LOC: C.ER 12:09
DX: M54.5 Low back pain (principal)

== ENCOUNTER 2017-06-16 14:05 | Emergency (ER) | payer MEDICAID ==
[2017-06-16 14:05] VITALS: BMI 36.6
[2017-06-16 14:24] VITALS: PULSE 87
[2017-06-16 15:19] LABS: BASO # 0.1 K/uL (0.0-0.2); BASO % 0.4 % (0.0-2.0); EOS # 0.2 K/uL (0.0-0.7); HEMATOCRIT 32.5 % (34.0-47.0); LYMPH # 2.8 K/uL (1.0-4.3); LYMPH % 15.2 % (20.0-40.0); MEAN CELL VOLUME 78.1 fL (81.0-99.0); MEAN CORPUSCULAR HGB CONC 32.1 g/dL (33.0-37.0); MEAN PLATELET VOLUME 8.6 fL (7.2-11.7); MONO # 1.2 K/uL (0.0-0.8); MONO % 6.5 % (0.0-10.0); RED CELL DISTRIBUTION WIDTH 16.7 % (11.5-14.5); WHITE BLOOD COUNT 18.5 K/uL (4.8-10.8)
[2017-06-16 15:26] LABS: RBC URINE 2 /hpf (0-3); URINE BILIRUBIN NEGATIVE (NEGATIVE); URINE BLOOD NEGATIVE (NEGATIVE); URINE COLOR Yellow (YELLOW); URINE GLUCOSE (UA) NORMAL (Normal); URINE KETONE NEGATIVE (NEGATIVE); URINE LEUKOCYTE ESTERASE NEG Leu/uL (Negative); URINE PROTEIN NEGATIVE (NEGATIVE); URINE UROBILINOGEN NORMAL mg/dL (0.2-1.0); WBC URINE 1 /hpf (0-5)
[2017-06-16 15:48] LABS: ALB/GLOB RATIO 1.4 (1.0-2.1); ALKALINE PHOSPHATASE 73 U/L (38-126); ALT/SGPT 34 U/L (9-52); AST/SGOT 40 U/L (14-36); BILIRUBIN,TOTAL 0.5 mg/dL (0.2-1.3); BLOOD UREA NITROGEN 11 mg/dL (7-17); CALCIUM 8.5 mg/dl (8.6-10.4); CARBON DIOXIDE 23 mmol/L (22-30); CHLORIDE 104 mmol/L (98-107); GFR AFRICAN-AMERICAN > 60; GLUCOSE,RANDOM 84 mg/dL (65-105); POTASSIUM 3.7 mmol/L (3.6-5.2); SODIUM 137 mmol/L (132-148); TOTAL PROTEIN 7.4 g/dL (6.3-8.3)
--- NOTE | 2017-06-16 15:55 | C.PDOC ---
History Of Present Illness 21 y/o female with history of prior admission for enteritis and Leukocytosis presents to ED with complaints of abdominal pain developed today. Patient denies fever, chills, back pain, nausea, vomiting, dysuria, vaginal bleeding, hematuria, dark stool. Reports that she has had extensive workup for similar complaint in past. Time Seen by Provider: 06/16/17 15:07 Chief Complaint (Nursing): Abdominal Pain History Per: Patient History/Exam Limitations: no limitations Onset/Duration Of Symptoms: Hrs Current Symptoms Are (Timing): Still Present Severity: None Location Of Pain/Discomfort: Diffuse Radiation Of Pain To:: None Past Medical History Reviewed: Historical Data, Nursing Documentation, Vital Signs Vital Signs: Last Vital Signs Temp 98.4 F 06/16/17 16:05 Pulse 87 06/16/17 16:05 Resp 18 06/16/17 16:05 BP 105/69 06/16/17 16:05 Pulse Ox 98 06/16/17 18:08 - Medical History PMH: Gall Bladder Disease (gallstones 2017) Surgical History: No Surg Hx Family History: States: No Known Family Hx - Social History Hx Tobacco Use: Yes Hx Alcohol Use: No Hx Substance Use: No - Immunization History Hx Tetanus Toxoid Vaccination: No Hx Influenza Vaccination: No Hx Pneumococcal Vaccination: No Review Of Systems Constitutional: Negative for: Fever, Chills Cardiovascular: Negative for: Chest Pain, Palpitations, Edema, Light Headedness Respiratory: Negative for: Cough, Shortness of Breath, SOB with Excertion, Wheezing Gastrointestinal: Positive for: Abdominal Pain. Negative for: Nausea, Vomiting , Diarrhea, Constipation, Hematochezia Genitourinary: Negative for: Dysuria, Frequency, Incontinence, Hematuria, Vaginal Discharge, Vaginal Bleeding, Pelvic Pain Musculoskeletal: Negative for: Back Pain Skin: Negative for: Rash Physical Exam - Physical Exam Appears: Well, Non-toxic, No Acute Distress Skin: Warm, Dry, No Rash Head: Atraumatic, Normacephalic Eye(s): bilateral: Normal Inspection Oral Mucosa: Moist Neck: Normal ROM, Supple Chest: Symmetrical Cardiovascular: Rhythm Regular Respiratory: Normal Breath Sounds, No Rales, No Rhonchi, No Wheezing Gastrointestinal/Abdominal: Soft, Tenderness (scant to periumbilical area), No Guarding, No Rebound Back: No CVA Tenderness Extremity: Normal ROM, Capillary Refill (<2 seconds) Neurological/Psych: Oriented x3 Gait: Steady ED Course And Treatment - Laboratory Results Result Diagrams: 06/16/17 15:13 06/16/17 15:13 O2 Sat by Pulse Oximetry: 98 (RA) Pulse Ox Interpretation: Normal Medical Decision Making Medical Decision Making: Patient is well appearing and sitting in chair in NAD CT FINDINGS: LOWER THORAX: Unremarkable. LIVER: Unremarkable. No gross lesion or ductal dilatation. GALLBLADDER AND BILE DUCTS: Unremarkable. PANCREAS: Unremarkable. No gross lesion or ductal dilatation. SPLEEN: Unremarkable. ADRENALS: Unremarkable. No mass. KIDNEYS AND URETERS: Unremarkable. No hydronephrosis. No solid mass. VASCULATURE: Unremarkable. No aortic aneurysm. BOWEL: Unremarkable. No obstruction. No gross mural thickening. APPENDIX: Normal appendix. PERITONEUM: Unremarkable. No free fluid. No free air. LYMPH NODES: Unremarkable. No enlarged lymph nodes. BLADDER: Unremarkable. REPRODUCTIVE: Unremarkable. BONES: No acute fracture. OTHER FINDINGS: None. IMPRESSION: Unremarkable contrast enhanced CT of the abdomen and pelvis. Labs show baseline leukocytosis. UA negative. CT WNL. Had conversation with patient and she reports that she has PMD and GI follow-up. She is well appearing, denies current pain, and is tolerating po. She has normal vitals. She was made aware of blood work and will return with any worsening symptoms. Disposition - Disposition Disposition: HOME/ ROUTINE Disposition Time: 18:07 Condition: GOOD Additional Instructions: Return to ED immediately if condition worsens. Follow-up with your GI doctor for further evaluation. Follow-up with PMD within 2 days. Forms: [employer] (Khmer) - Clinical Impression Clinical Impression: Leukocytosis, Abdominal pain - Scribe Statement The provider has reviewed the documentation as recorded by the Sukumar Sam All medical record entries made by the Spenceribsyeda were at my direction and personally dictated by me. I have reviewed the chart and agree that the record accurately reflects my personal performance of the history, physical exam, medical decision making, and the department course for this patient. I have also personally directed, reviewed, and agree with the discharge instructions and disposition.
[2017-06-16] MEDS ORDERED: Morphine 4 MG/ML VIAL ONE (15:59)
[2017-06-16 16:09] VITALS: BP 105/69; RESP 18; TEMP 98.4
[2017-06-16] MEDS ORDERED: Iohexol 350mg/ml 100 ML ONE (16:17)
--- NOTE | 2017-06-16 17:09 | CT ---
PROCEDURE: CT Abdomen and Pelvis with contrast HISTORY: abdominal pain COMPARISON: None. TECHNIQUE: Contrast dose: 100 cc of Omni 350 Radiation dose: Total exam DLP = 929 mGy-cm. This CT exam was performed using one or more of the following dose reduction techniques: Automated exposure control, adjustment of the mA and/or kV according to patient size, and/or use of iterative reconstruction technique. FINDINGS: LOWER THORAX: Unremarkable. LIVER: Unremarkable. No gross lesion or ductal dilatation. GALLBLADDER AND BILE DUCTS: Unremarkable. PANCREAS: Unremarkable. No gross lesion or ductal dilatation. SPLEEN: Unremarkable. ADRENALS: Unremarkable. No mass. KIDNEYS AND URETERS: Unremarkable. No hydronephrosis. No solid mass. VASCULATURE: Unremarkable. No aortic aneurysm. BOWEL: Unremarkable. No obstruction. No gross mural thickening. APPENDIX: Normal appendix. PERITONEUM: Unremarkable. No free fluid. No free air. LYMPH NODES: Unremarkable. No enlarged lymph nodes. BLADDER: Unremarkable. REPRODUCTIVE: Unremarkable. BONES: No acute fracture. OTHER FINDINGS: None. IMPRESSION: Unremarkable contrast enhanced CT of the abdomen and pelvis.
[2017-06-16] MEDS ORDERED: Sodium Chloride 0.9% 1,000 ML IV ONE (17:33)
[2017-06-16 18:08] VITALS: O2SAT 98
== END 2017-06-16 18:20 | disposition home or self-care (01) ==
LOC: C.ER 14:05
DX: R10.33 Periumbilical pain (principal); D72.829 Elevated white blood cell count, unspecified
CPT/HCPCS: 74177; 80053; 81001; 83690; 84703; 85025; 85610; 85730; 96374; 99284; J2270; J7040; Q9967

== ENCOUNTER 2018-01-12 11:49 | Emergency (ER) | payer MEDICAID ==
[2018-01-12 11:50] VITALS: BMI 36.6
[2018-01-12 11:56] VITALS: RESP 20
--- NOTE | 2018-01-12 12:50 | C.PDOC ---
History Of Present Illness 22yo female, presents to ED with complaints of sore throat for the past 2 days. Patient denies any associated fever, cough,shortness of breath, difficulty breathing, or trouble swallowing. Time Seen by Provider: 01/12/18 12:04 Chief Complaint (Nursing): ENT Problem History Per: Patient History/Exam Limitations: no limitations Onset/Duration Of Symptoms: Days (2) Current Symptoms Are (Timing): Still Present Additional History Per: Patient Past Medical History Reviewed: Historical Data, Nursing Documentation, Vital Signs Vital Signs: Last Vital Signs Temp 97.3 F L 01/12/18 13:07 Pulse 82 01/12/18 13:07 Resp 20 01/12/18 13:07 BP 113/74 01/12/18 13:07 Pulse Ox 100 01/12/18 14:49 - Medical History PMH: Gall Bladder Disease (gallstones 2017) Surgical History: No Surg Hx Family History: States: No Known Family Hx - Social History Hx Tobacco Use: Yes Hx Alcohol Use: No Hx Substance Use: No - Immunization History Hx Tetanus Toxoid Vaccination: No Hx Influenza Vaccination: No Hx Pneumococcal Vaccination: No Review Of Systems Except As Marked, All Systems Reviewed And Found Negative. Constitutional: Negative for: Fever, Chills ENT: Positive for: Throat Pain. Negative for: Throat Swelling Respiratory: Negative for: Shortness of Breath Physical Exam - Physical Exam Appears: Non-toxic, No Acute Distress Skin: Normal Color, Warm, Dry Head: Atraumatic, Normacephalic Eye(s): bilateral: Normal Inspection, EOMI Ear(s): Bilateral: Normal Nose: Normal Oral Mucosa: Moist Throat: No Exudate, No Drooling, Other (+ tonsilar swelling with mild erythema ) Neck: Normal ROM, Supple Lymphatic: Adenopathy (submandibular lymphadenopathy bilaterally) Chest: Symmetrical Cardiovascular: Rhythm Regular Respiratory: Normal Breath Sounds, No Accessory Muscle Use Extremity: Normal ROM Neurological/Psych: Oriented x3, Normal Speech ED Course And Treatment O2 Sat by Pulse Oximetry: 100 (RA) Pulse Ox Interpretation: Normal Progress Note: Patient given Motrin and viscous lidocaine for pain relief. Patient given Amoxicillin 500mg as well. On reassessment, patient is resting comfortably, and is in no acute distress. Tolerating PO. No drooling. NO difficulty breathing or swallowing. Patient was instructed to follow up with physician/clinic in 1-2 days for further evaluation. Disposition - Disposition Disposition: HOME/ ROUTINE Disposition Time: 12:48 Condition: STABLE Additional Instructions: Follow up with your PMD in 1-2 days. Return to ER if symptoms persist or worsen. 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 - Scribe Statement The provider has reviewed the documentation as recorded by the Scribe (Lesia Schulz) Provider Attestation: All medical record entries made by the Spenceribe were at my direction and personally dictated by me. I have reviewed the chart and agree that the record accurately reflects my personal performance of the history, physical exam, medical decision making, and the department course for this patient. I have also personally directed, reviewed, and agree with the discharge instructions and disposition.
[2018-01-12 13:10] VITALS: BP 113/74; PULSE 82; TEMP 97.3
[2018-01-12 14:49] VITALS: O2SAT 100
== END 2018-01-12 13:17 | disposition home or self-care (01) ==
LOC: C.ER 11:49
DX: J03.90 Acute tonsillitis, unspecified (principal)

== ENCOUNTER 2018-04-18 09:14 | Emergency (ER) | payer MEDICAID, OTHER ==
[2018-04-18 09:15] VITALS: BMI 36.6
[2018-04-18 09:22] VITALS: PULSE 86; RESP 18; O2SAT 100
--- NOTE | 2018-04-18 09:49 | C.PDOC ---
History Of Present Illness 22 yo female, presents with sore throat, cough congestion since last night. no fevers, no abd pain no vomiting no diarrhea. son sick with similar Time Seen by Provider: 04/18/18 09:27 Chief Complaint (Nursing): ENT Problem Past Medical History Reviewed: Historical Data, Nursing Documentation, Vital Signs Vital Signs: Last Vital Signs Temp 98.4 F 04/18/18 11:30 Pulse 86 04/18/18 11:30 Resp 18 04/18/18 11:30 BP 122/63 04/18/18 11:30 Pulse Ox 100 04/18/18 11:30 - Medical History PMH: Gall Bladder Disease (gallstones 2017) Family History: States: Unknown Family Hx - Social History Hx Tobacco Use: Yes Hx Alcohol Use: No Hx Substance Use: No - Immunization History Hx Tetanus Toxoid Vaccination: No Hx Influenza Vaccination: No Hx Pneumococcal Vaccination: No Review Of Systems Except As Marked, All Systems Reviewed And Found Negative. ENT: Positive for: Nose Discharge, Nose Congestion, Throat Pain, Throat Swelling Respiratory: Positive for: Cough Physical Exam - Physical Exam Appears: Well, No Acute Distress, Other (speaking full sentences, no hot potato voice, ) Skin: Normal Color, Warm, Dry Eye(s): bilateral: Normal Inspection, PERRL, EOMI Ear(s): Bilateral: Normal Nose: Normal Throat: Erythema, No Exudate, Other (no uvular deviation no hot potato voice) Neck: Normal Lymphatic: Adenopathy (cervical) Cardiovascular: Rhythm Regular Respiratory: Normal Breath Sounds Gastrointestinal/Abdominal: Normal Exam Back: Normal Inspection Extremity: Normal ROM ED Course And Treatment O2 Sat by Pulse Oximetry: 100 Medical Decision Making Medical Decision Making: strep flu neg. no hot ptoato voice. 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 Disposition - Disposition Referrals: [facility] [Outside] [facility] [Outside] Wayne Beckman MD [Staff Provider] - Disposition: HOME/ ROUTINE Disposition Time: 11:00 Condition: STABLE Additional Instructions: return to er with worsening symptoms or concerns. Instructions: Viral Pharyngitis Forms: [employer] (Luxembourgish) - Clinical Impression Clinical Impression: Acute pharyngitis, Viral syndrome
[2018-04-18 11:31] VITALS: BP 122/63; TEMP 98.4
== END 2018-04-18 11:32 | disposition home or self-care (01) ==
LOC: C.ER 09:14
DX: J02.9 Acute pharyngitis, unspecified (principal); B34.9 Viral infection, unspecified; F17.210 Nicotine dependence, cigarettes, uncomplicated
CPT/HCPCS: 87070; 87430; 87804; 99283; J8540

== ENCOUNTER 2018-10-06 05:04 | Emergency (ER) | payer SELFPAY, MEDICAID | END 2018-10-06 06:30 | disposition home or self-care (01) | LOC: C.ER 05:04 ==